=== PATIENT | male | born 1960 | race Caucasian/White ===

== ENCOUNTER → 2019-05-22 | Outpatient (CLI) | payer BC ==
--- NOTE | 2019-05-22 10:55 | NM ---
EXAMINATION TYPE: NM hepatobiliary wo EF DATE OF EXAM: 05/22/2019 COMPARISON: NONE HISTORY: Gallstones TECHNIQUE: After the intravenous administration of 4.99 mCi Tc 99m Mebrofenin hepatobiliary scintigra phy is performed. Immediate images post injection. FINDINGS: There is prompt homogenous uptake of radio pharmaceutical within the liver. Small bowel activity is d etected by 12 minutes. Gallbladder is not detected despite delayed imaging to 2.5 hours without signi ficant residual activity within the liver. IMPRESSION: Nonvisualization of the gallbladder could be due to chronic cholecystitis.
== END | disposition home or self-care (01) ==
LOC: RADNMMAIN 07:03
PROVIDERS: ATTEND Family Medicine
DX: K80.20 Calculus of gallbladder without cholecystitis without obstruction (principal)
CPT/HCPCS: 78226; A9537

== ENCOUNTER → 2019-06-16 | Outpatient (CLI) | payer BC ==
--- NOTE | 2019-06-16 14:33 | CT ---
EXAMINATION TYPE: CT abdomen w con DATE OF EXAM: 06/16/2019 COMPARISON: None HISTORY: Cholecystitis CT DLP: 1346.7 mGycm Automated exposure control for dose reduction was used. TECHNIQUE: Helical acquisition of images was performed from the lung bases through the top of iliac crest to include entire abdomen. CONTRAST: Performed with Oral Contrast and with IV Contrast, patient injected with 100 mL of Isovue 300. FINDINGS: Lung bases are clear. There is no pleural effusion. Heart size is normal. Stomach appears normal. Graciela er spleen pancreas appear normal. Bile ducts are not dilated. There is suggestion of very minimal flu id around the fundus of the gallbladder. Gallbladder is not dilated. There is no adrenal mass. Kidneys show satisfactory contrast opacification. There is no hydronephrosi s. There is 1 cm cortical cyst lateral left kidney. There is no retroperitoneal adenopathy. Ureters a re not dilated. There are a few sigmoid diverticula. There is no sign of diverticulitis. There are mu ltiple right side colonic diverticula also. There is no ascites. There is no free air. There is no si gn of a bowel obstruction. There is no sign of mesenteric edema. IMPRESSION: THERE IS SUBTLE EDEMA AROUND THE GALLBLADDER THAT COULD RELATE TO SOME DEGREE OF CHOLECYSTITIS. THE G ALLBLADDER HOWEVER IS NOT DILATED. There is colonic diverticulosis.
== END | disposition home or self-care (01) ==
LOC: RADCTMAIN 08:42
PROVIDERS: ATTEND Surgery
DX: K57.30 Diverticulosis of large intestine without perforation or abscess without bleeding (principal); R60.0 Localized edema
CPT/HCPCS: 74160; Q9967

== ENCOUNTER 2019-07-20 07:44 | Day surgery (SDC) | payer BC ==
[2019-07-18 13:39] VITALS: BMI 32.5
[~2019-07-20 07:44] MED LIST: DEXAMETHASONE SOD PHOSPHATE 10 MG/ML 1 ML VIAL IV ONE; HEPARIN SODIUM,PORCINE 5,000 UNIT/ML 1 ML VIAL SQ ONE; MIDAZOLAM 2 MG/2 ML VIAL IV PRN; ONDANSETRON 4 MG/2 ML VIAL IVP ONE; SCOPOLAMINE 1.5MG/72HR PATCH TRANSDERM ONE
[2019-07-20] MEDS ORDERED: LIDOCAINE 1% 20 ML VIAL (10MG/ML) FOR IV START INTRADERMA ONE (08:13)
[2019-07-20] MEDS: LACTATED RINGERS 1,000 ML IV SCH ×2 (08:13→11:04)
--- NOTE | 2019-07-20 08:39 | P.GSHP ---
History of Present Illness H&P Date: 07/20/19 Chief Complaint: Chronic cholecystitis 59-year-old male here today for cholecystectomy. Patient had a workup recently because of upper abdominal pain. HIDA scan showed nonvisualization of the gallbladder. Ultrasound showed a contracted gallbladder. CAT scan was ordered to confirm presence of the gallbladder which again was noted to be small and contracted with stones. Patient denies any change in the color of his skin urine or stool. Past Medical History Past Medical History: GERD/Reflux, Sleep Apnea/CPAP/BIPAP Additional Past Medical History / Comment(s): past hx of sleep apnea, History of Any Multi-Drug Resistant Organisms: None Reported Additional Past Surgical History / Comment(s): had sx for sleep apnea, sx for nasal polyps, "warthin wart" removed from right side of neck Past Anesthesia/Blood Transfusion Reactions: Previous Problems w/ Anesthesia Additional Past Anesthesia/Blood Transfusion Reaction / Comment(s): hard time waking up in past Smoking Status: Former smoker Medications and Allergies Home Medications Medication Instructions Recorded Confirmed Type ALPRAZolam [Xanax] 2 mg PO DAILY PRN 07/18/19 07/20/19 History Lansoprazole 1 tab PO DAILY 07/18/19 07/20/19 History Lisdexamfetamine Dimesylate 70 mg PO QAM PRN 07/18/19 07/20/19 History [Vyvanse] Allergies Allergy/AdvReac Type Severity Reaction Status Date / Time No Known Allergies Allergy Verified 07/18/19 13:32 Surgical - Exam Vital Signs Temp Pulse Resp BP Pulse Ox 97.7 F 95 16 136/90 97 07/20/19 07:59 07/20/19 07:59 07/20/19 07:59 07/20/19 07:59 07/20/19 07:59 Physical exam: General: Well-developed, well-nourished HEENT: Normocephalic, sclerae nonicteric Abdomen: Nontender, nondistended Extremities: No edema Neuro: Alert and oriented Assessment and Plan (1) Chronic cholecystitis Narrative/Plan: Will proceed with laparoscopic cholecystectomy, possible open cholecystectomy at this time. Risks of bleeding, infection, bile leak, bile duct injury, retained common bile duct stone, trocar injury, conversion to an open procedure, hernia, anesthesia related complications were reviewed. The patient understands and wishes to proceed. Current Visit: Yes Status: Acute Code(s): K81.1 - CHRONIC CHOLECYSTITIS SNOMED Code(s): 68895128
[2019-07-20] MEDS ORDERED: fentaNYL (PF) 50 MCG/ML 2 ML AMP ONE (08:58)
[2019-07-20] MEDS ORDERED: SUCCINYLCHOLINE CHLORIDE VIAL 200 MG/10 ML VIAL IV ONE (08:58)
[2019-07-20] MEDS ORDERED: ROCURONIUM BROMIDE 10 MG/ML 10 ML VIAL IV ONE (08:58)
[2019-07-20] MEDS ORDERED: PROPOFOL 10 MG/ML 20 ML VIAL IV ONE (08:58)
[2019-07-20] MEDS ORDERED: HYDROmorphone (PF) 1 MG/ML ONE (08:58)
[2019-07-20] MEDS ORDERED: LIDOCAINE 1% INJ 10MG/ML (20 ML MDV) ONE (08:58)
[2019-07-20] MEDS ORDERED: GLYCOPYRROLATE 0.2 MG/ML 2 ML VIAL ONE (08:58)
[2019-07-20] MEDS ORDERED: NEOSTIGMINE 1 MG/ML 10 ML VIAL ONE (08:58)
[2019-07-20] MEDS ORDERED: METOPROLOL TARTRATE 5 MG/5 ML VIAL IVP ONE (08:58)
[2019-07-20] MEDS ORDERED: ALBUTEROL INHALER 60 PUFF/8 GM INHALER INHALATION ONE (08:58)
[2019-07-20] MEDS ORDERED: PHENYLEPHRINE-0.9% NACL SYG 1 MG/10 ML SYRINGE ONE (08:58)
[2019-07-20] MEDS ORDERED: MIDAZOLAM 2 MG/2 ML VIAL ONE (08:58)
[2019-07-20] MEDS ORDERED: BUPIVACAINE (PF) 0.25% 30 ML VIAL SQ ONE (09:25)
--- NOTE | 2019-07-20 10:26 | P.OP ---
Date of Procedure: 07/20/19 Procedure(s) Performed: PREOPERATIVE DIAGNOSIS: Chronic cholecystitis POSTOPERATIVE DIAGNOSIS: Same PROCEDURE: Laparoscopic cholecystectomy SURGEON: Mak EBL: Minimal see anesthesia record ANESTHESIA: Gen. COMPLICATIONS: None OPERATIVE PROCEDURE: The patient was brought and placed on the operating room table in the supine position. The patient was placed under general anesthesia at that time. The abdomen was prepped and draped in the usual sterile fashion. A small vertical infraumbilical incision was made. The fascia was grasped with the Génesis forceps. The fascia was retracted anteriorly. The Veress needle was advanced into the peritoneal cavity. The saline drop test was normal. Insufflation took place up to 15 mmHg. A 5 mm optical trocar was advanced and the peritoneal cavity. 2 additional 5 mm trochars were placed in the right upper quadrant under direct visualization. A 12 mm trocar was advanced into the epigastric incision site. The gallbladder was contracted and partially calcified. The induration extended all the way down to the cystic duct. The gallbladder was retracted superiorly and laterally. The peritoneum overlying the infundibulum was bluntly dissected. The patient's cystic duct was visualized. The junction between the cystic duct common and hepatic duct was identified. The cystic duct was then divided after placement of 3 12 mm clips on the patient's side and one on the specimen side. The cystic artery was identified and clipped as well. A small vessel was seen along the gallbladder fossa and clipped as well. The gallbladder was then removed from the liver bed using electrocautery. The gallbladder was then removed from the epigastric trocar site with an Endo Catch bag. In order to remove the gallbladder the fascia was lengthened using electrocautery. The gallbladder fossa was irrigated with saline. There was no evidence of any bleeding or biliary drainage seen. The fascia at the 12 millimeter site was closed using a running 0 Vicryl stitch. The trochars were then removed. The skin at all 4 sites was closed using a 4-0 Monocryl stitch. Skin glue was utilized on the incision sites. At the end of this procedure the sponge and needle counts were correct. DISPOSITION: Stable to the recovery room
[2019-07-20 10:42] VITALS: TEMP 98.2
[2019-07-20] MEDS: HYDROmorphone 0.5 MG/0.5 ML SYRINGE IVP PRN ×2 (11:12→11:22)
[2019-07-20] MEDS ORDERED: HYDROcodone/APAP 5-325MG 1 EACH TAB PO ONE (11:50)
[2019-07-20 12:33] VITALS: BP 146/90; PULSE 72; RESP 16
== END 2019-07-20 12:50 | disposition home or self-care (01) ==
LOC: OR 07:44
PROVIDERS: ATTEND Surgery
DX: K80.10 Calculus of gallbladder with chronic cholecystitis without obstruction (principal); K21.9 Gastro-esophageal reflux disease without esophagitis; G47.33 Obstructive sleep apnea (adult) (pediatric); K08.89 Other specified disorders of teeth and supporting structures; F90.9 Attention-deficit hyperactivity disorder, unspecified type; F17.210 Nicotine dependence, cigarettes, uncomplicated; Z98.890 Other specified postprocedural states; Z87.09 Personal history of other diseases of the respiratory system; Z87.2 Personal history of diseases of the skin and subcutaneous tissue; Z91.89 Other specified personal risk factors, not elsewhere classified; Z79.899 Other long term (current) drug therapy
CPT/HCPCS: 88304; 47562; J2250; J0330; J1644; J1100; J2710; J0690; J2405; J2001; J3010; J1170 ×2; J2370; J2704

== ENCOUNTER → 2020-07-03 | Outpatient (CLI) | payer BC ==
--- NOTE | 2020-07-03 11:14 | MR ---
EXAMINATION TYPE: MR shoulder LT wo con DATE OF EXAM: 07/03/2020 COMPARISON: X-ray 06/17/2020 HISTORY: Left shoulder pain TECHNIQUE: Multiplanar, multisequence imaging of the left shoulder is performed without contrast. FINDINGS: There is a small joint effusion. Glenohumeral ligaments appear intact. There does appear to be mild thickening of the inferior glenohumeral ligament. There is increased fluid signal surrounding the biceps tendon. Thickening and increased signal along the intracapsular portion of the tendon finding compatible with tendinosis. Exam is severely limited due to motion artifact. AC joint arthropathy with impingement of the suprasp inatus tendon and muscle. At the insertion there is a intrasubstance tear measuring a length of 4 mm in diameter of 3 mm of the supraspinatus tendon. Additionally from the musculotendinous junction extending a length of 2 cm the re is increased intrasubstance signal and thickening of the tendon compatible severe tendinosis and p artial undersurface tear. No retraction. Infraspinatus tendon demonstrates no through thickness tear. Intrasubstance signal seen along the dis meri 2 cm of the tendon compatible with tendinosis. Assessment of the labrum is limited due to motion. Findings are suspicious for a SLAP tear which exte nds forward and inferiorly into the inferior anterior labral tear IMPRESSION: 1. Severe tendinosis involving supraspinatus tendon extending from the musculotendinous junction to t he insertion. Partial undersurface tear distally near the insertion with no evidence of complete thro ugh thickness tear or retraction. 2. Moderate tendinosis distal 2 cm of the infraspinatus tendon with a partial tear distally near the insertion. No complete through thickness tear. 3. Impingement secondary to AC joint arthropathy. 4. Bicipital tendinosis. Bicipital tendon appears to be subluxed from the bicipital groove. Intrasubs tance tear of the biceps tendon within the rotator interval extending to the biceps anchor. 5. There is a SLAP tear which extends forward and inferiorly into the anterior inferior labrum 5. Thickening of the inferior glenohumeral ligament with small joint effusion associated with a synov itis. Correlate clinically.
== END | disposition home or self-care (01) ==
LOC: RADMRIMAIN 09:03
PROVIDERS: ATTEND Orthopaedic Surgery
DX: M75.112 Incomplete rotator cuff tear or rupture of left shoulder, not specified as traumatic (principal); M65.9 Synovitis and tenosynovitis, unspecified; M25.412 Effusion, left shoulder

== ENCOUNTER → 2020-07-28 | Outpatient (CLI) | payer BC ==
[2020-07-28 09:12] LABS: Basophils # (A) 0.1 k/uL (0-0.2); Basophils % (A) 1 %; Eosinophils # (A) 0.2 k/uL (0-0.7); Eosinophils % (A) 2 %; HCT 52.1 % (39.0-53.0); HGB 16.8 gm/dL (13.0-17.5); Lymphocytes # (A) 2.7 k/uL (1.0-4.8); Lymphocytes % (A) 23 %; MCH 28.5 pg (25.0-35.0); MCHC 32.3 g/dL (31.0-37.0); MCV 88.3 fL (80.0-100.0); Mean Platelet Volume 9.9; Monocytes # (A) 0.6 k/uL (0-1.0); Monocytes % (A) 5 %; Neutrophils # (A) 8.1 k/uL (1.3-7.7); Neutrophils % (A) 68 %; Platelet Count 208 k/uL (150-450); RDW 13.8 % (11.5-15.5); WBC 11.9 k/uL (3.8-10.6)
[2020-07-28 09:29] LABS: Potassium 4.5 mmol/L (3.5-5.1)
== END | disposition home or self-care (01) ==
LOC: LABWHC1 08:03
PROVIDERS: ATTEND Orthopaedic Surgery
DX: Z01.818 Encounter for other preprocedural examination (principal); M75.41 Impingement syndrome of right shoulder
CPT/HCPCS: 36415; 80051; 85025; 93005

== ENCOUNTER → 2020-08-26 | Outpatient (CLI) | payer BC ==
--- NOTE | 2020-08-26 12:23 | MR ---
EXAMINATION TYPE: MR shoulder RT wo con DATE OF EXAM: 08/26/2020 COMPARISON: None HISTORY: Rt shoulder pain Technique: Multiplanar, multiecho imaging on a 3.0 Ivy magnet is performed through the shoulder. Ex am is limited due to motion artifact throughout the Findings: Long head of the biceps tendon is within the bicipital groove. Fluid surrounds the long hea d biceps tendon. Correlate for moderate tendinosis. No significant joint effusion is evident. Glenoid labrum as visualized on this noncontrast study simi ears intact. Rotator cuff tendons are evaluated. There is fluid within the subacromial subdeltoid bursa adjacent to the supraspinatus tendon. Perforation is not identified. Correlate for mild to moderate tendinosis supraspinatus and no tendon or muscle retraction is evident. Muscle signal. The acromioclavicular j unction is hypertrophied which can contribute to impingement syndrome. Some inflammatory change junct ion T2-weighted sequences. IMPRESSIONS: 1. Findings suggestive of moderate tendinosis of the supraspinatus tendon and long head biceps tendon .
== END | disposition home or self-care (01) ==
LOC: RADMRIMAIN 11:05
PROVIDERS: ATTEND Orthopaedic Surgery
DX: M25.511 Pain in right shoulder (principal)

== ENCOUNTER 2020-08-28 07:29 | Day surgery (SDC) | payer BC ==
[2020-08-26 14:50] VITALS: BMI 32.5
--- NOTE | 2020-08-27 15:21 | HP ---
HISTORY AND PHYSICAL DATE OF SURGERY: 08/28/2020 Renato Bonner is a 60-year-old gentleman seen with progressive left shoulder pain. Options were discussed for treatment. He elected to proceed with arthroscopy. Consent was obtained. PAST MEDICAL HISTORY: Hyperlipidemia. PAST SURGICAL HISTORY: Cholecystectomy. DAILY MEDICATIONS: Prevacid, cholesterol medication. ALLERGIES: NONE. SOCIAL HISTORY: He denies current tobacco use. PHYSICAL EVALUATION OF THE LEFT SHOULDER: Flexion 110, abduction 110. External rotation is 50 with pain and weakness. Tenderness along the anterolateral acromion and rotator cuff insertion site. Impingement is positive at 90. Drop-arm sign is positive. Distal neurovascular exam is intact. IMAGING: Left shoulder radiographs revealed a type 2 acromion, acromioclavicular joint osteoarthritis and cystic changes of the tuberosity. An MRI of the left shoulder revealed partial rotator cuff tendon tear, SLAP tear, impingement, acromioclavicular joint osteoarthritis. IMPRESSION: 1. Left shoulder impingement with rotator cuff tear. 2. Left shoulder SLAP tear. 3. Left shoulder acromioclavicular joint osteoarthritis. PLAN: Left shoulder arthroscopy with decompression, arthroscopic rotator cuff repair, arthroscopic labral repair versus debridement, Kasia procedure. MMODL / IJN: [id number] /
[~2020-08-28 07:29] MED LIST changes: -DEXAMETHASONE SOD PHOSPHATE 10 MG/ML 1 ML VIAL IV ONE; +DEXAMETHASONE SOD PHOSPHATE 4 MG/ML 1 ML VIAL IV ONE; -HEPARIN SODIUM,PORCINE 5,000 UNIT/ML 1 ML VIAL SQ ONE; +HYDROmorphone 0.5 MG/0.5 ML SYRINGE IVP PRN; +LACTATED RINGERS 1,000 ML IV SCH; +LIDOCAINE 1% (10MG/ML) FOR IV START INTRADERMA PRN; -SCOPOLAMINE 1.5MG/72HR PATCH TRANSDERM ONE
[2020-08-28] MEDS ORDERED: MIDAZOLAM 2 MG/2 ML VIAL IV ONE (08:22)
--- NOTE | 2020-08-28 09:30 | P.ANPRN ---
Procedure Note - Anesthesia - Nerve Block Performed Left Interscalene Single Time Out Performed: Yes Date of Procedure: 08/28/20 Procedure Start Time: : Procedure Stop Time: Location of Patient: PreOp Indication: Acute Post-Operative Pain, Requested by Surgeon Sedation Type: Sedate with meaningful contact maintained Preparation: Sterile Prep Position: Supine Needle Types: Pajunk Needle Gauge: 21 Ultrasound used to visualize needle placement: Yes Ultrasound used to observe medication spread: Yes Blood Aspirated: No Pain Paresthesia on Injection Noted: No Resistance on Injection: Normal Image Stored and Saved: Yes Events: Uneventful and Well Tolerated (ropi .5% 20cc plus dexamethasone 4mg)
[2020-08-28] MEDS ORDERED: ePHEDrine SULFATE/0.9% NACL/PF 50 MG/5 ML SYRINGE IV ONE (09:38)
[2020-08-28] MEDS ORDERED: MIDAZOLAM 2 MG/2 ML VIAL ONE (09:38)
[2020-08-28] MEDS ORDERED: PHENYLEPHRINE 10 MG/ML VIAL ONE (09:38)
[2020-08-28] MEDS ORDERED: ALBUTEROL HFA INHALER INHALATION ONE (09:38)
[2020-08-28] MEDS ORDERED: PROPOFOL 10 MG/ML 20 ML VIAL IV ONE (09:38)
[2020-08-28] MEDS ORDERED: DEXAMETHASONE SOD PHOSPHATE 4 MG/ML 1 ML VIAL ONE (09:38)
[2020-08-28] MEDS ORDERED: LIDOCAINE 1% INJ 10MG/ML (20 ML MDV) ONE (09:38)
[2020-08-28] MEDS ORDERED: ROPIVACAINE 5 MG/ML 30 ML VIAL ONE (09:38)
[2020-08-28] MEDS ORDERED: fentaNYL (PF) 50 MCG/ML 2 ML AMP ONE (09:38)
[2020-08-28] MEDS ORDERED: SUCCINYLCHOLINE CHLORIDE 100 MG/5 ML SYR IV ONE (09:38)
[2020-08-28] MEDS ORDERED: LACTATED RINGERS 1,000 ML IV ONE (10:19)
--- NOTE | 2020-08-28 11:18 | P.OP ---
Date of Procedure: 08/28/20 Preoperative Diagnosis: Left shoulder impingement Postoperative Diagnosis: 1. Left shoulder labral tear 2. Left shoulder impingement 3. Left shoulder acromioclavicular joint osteoarthritis 4. Left shoulder partial long head biceps tendon tear Procedure(s) Performed: 1. Left shoulder arthroscopic labral repair 2. Left shoulder arthroscopic subacromial decompression 3. Left shoulder arthroscopic Kasia procedure 4. Left shoulder arthroscopic biceps tenotomy Implants: 2Arthrex push lock anchors Anesthesia: GETA, regional (Interscalene block) Surgeon: Chad Snow [employer]: Renny Woodward Estimated Blood Loss (ml): 10 Pathology: none sent Condition: stable Disposition: PACU Indications for Procedure: 60-year-old gentleman seen with progressive left shoulder pain. After treatment options were discussed, he elected to proceed with arthroscopy. Operative Findings: See description of procedure Description of Procedure: Patient underwent an interscalene block by department of anesthesia. The patient was then taken to the operative suite. The patient underwent a general anesthetic by the department of anesthesia. The patient was placed into a lateral position and secured. There was appropriate padding of the bony prominence. Left shoulder was then prepped and draped in normal sterile orthopedic fashion. We placed the extremity in 10 pounds of longitudinal traction. A posterior incision was now made for a posterior working portal site. The trocar and cannula were inserted into the glenohumeral joint. Arthroscopy was initiated. Spinal needle was now inserted anteriorly, to ascertain the anterior working portal site. An incision was now made in that area, a trocar was inserted followed by a probe. There was significant partial tearing long head biceps tendon. There was an anterior labral tear present. The superior labrum was stable. There was some grade 2/3 chondromalacia changes along the anterior glenoid consistent with long-standing labral tear. The posterior and inferior labrum were intact. I now introduced a cannula through the anterior portal site. I now abraded the anterior labral area getting down to some petechial bone. I now passed 2 sutures through good bites of labral tissue. With the assistance of Michael CAMACHO had drilled 2 holes into the anterior labrum and then repaired the labral tear with 2 Arthrex push lock anchors. Residual suture limbs were clipped. The repair was probed and found to be stable. Instruments now removed from glenohumeral joint. Utilizing the posterior working portal site, the trocar and cannula were inserted into the subacromial space. Arthroscopy initiated. I made an incision 2 fingerbreadths lateral to the acromion. I introduced my trocar followed by my ArthroCare ablator. I now began ablating thick subacromial bursal tissue, which exposed the undersurface of the anterior acromion. There was diminished subacromial space. There was a very prominent anterior acromion. A motorized bur was introduced and a subacromial decompression was performed. I also excised some osteophytes off the inferior aspect of the distal clavicle. The AC joint was visualized and noted to be fairly arthritic. The motorized bur was introduced in the anterior portal site and a Kasia procedure was performed without difficulty, decompressing the AC joint nicely. I turned my attention to the rotator cuff. There was superficial fraying of the distal supraspinatus. Motorize shaver was utilized to clean that up. There was probed and there was no evidence for any tear. Instruments now removed from the portal sites. All portal sites were approximated with nylon suture. Sterile dressings were applied followed by a shoulder immobilizer. Renny CAMACHO assisted in this complex case. The patient was awakened, transferred to a bed, and taken to recovery in stable condition.
[2020-08-28 11:21] VITALS: TEMP 97.1
[2020-08-28 12:09] VITALS: RESP 18
[2020-08-28 12:36] VITALS: BP 129/80; PULSE 82
== END 2020-08-28 12:55 | disposition home or self-care (01) ==
LOC: OR 07:29
PROVIDERS: ATTEND Orthopaedic Surgery
DX: S43.432A Superior glenoid labrum lesion of left shoulder, initial encounter (principal); S46.112A Strain of muscle, fascia and tendon of long head of biceps, left arm, initial encounter; M19.012 Primary osteoarthritis, left shoulder; M75.102 Unspecified rotator cuff tear or rupture of left shoulder, not specified as traumatic; M75.42 Impingement syndrome of left shoulder; M94.212 Chondromalacia, left shoulder; M25.712 Osteophyte, left shoulder; G47.33 Obstructive sleep apnea (adult) (pediatric); F32.9 Major depressive disorder, single episode, unspecified; K21.9 Gastro-esophageal reflux disease without esophagitis; E78.5 Hyperlipidemia, unspecified; Z79.899 Other long term (current) drug therapy; Z90.49 Acquired absence of other specified parts of digestive tract
CPT/HCPCS: 64415; 76942; 29824; 29826; 29807; C1713 ×2; J2250; J1100; J2370; J0690; J2405; J2001; J3010; J2795; J0330; J2704

== ENCOUNTER 2021-05-28 09:19 | Day surgery (SDC) | payer BC ==
[2021-05-25 14:31] VITALS: BMI 34.0
[~2021-05-28 09:19] MED LIST changes: +DEXAMETHASONE SOD PHOSPHATE 4 MG/ML 1 ML VIAL IV PRN; +FAMOTIDINE 20 MG/2 ML VIAL IV PRN; -LIDOCAINE 1% (10MG/ML) FOR IV START INTRADERMA PRN; -MIDAZOLAM 2 MG/2 ML VIAL IV PRN; +ONDANSETRON 4 MG/2 ML VIAL IVP PRN; +OXYMETAZOLINE 0.05% NASL SPRAY 1 SPRAY BOTTLE EA NOSTRIL PRN
[2021-05-28] MEDS ORDERED: NEOSTIGMINE 1 MG/ML 10 ML VIAL ONE (11:55)
[2021-05-28] MEDS ORDERED: PHENYLEPHRINE-0.9% NACL SYG 1,000 MCG/10 ML SYRINGE ONE (11:55)
[2021-05-28] MEDS ORDERED: ROCURONIUM 10 MG/ML (5 ML VIAL) IV ONE (11:55)
[2021-05-28] MEDS ORDERED: LIDOCAINE 1% INJ 10MG/ML (20 ML MDV) ONE (11:55)
[2021-05-28] MEDS ORDERED: fentaNYL (PF) 50 MCG/ML 2 ML AMP ONE (11:55)
[2021-05-28] MEDS ORDERED: PROPOFOL 10 MG/ML 20 ML VIAL IV ONE (11:55)
[2021-05-28] MEDS ORDERED: SUCCINYLCHOLINE CHLORIDE 100 MG/5 ML SYR IV ONE (11:55)
[2021-05-28] MEDS ORDERED: GLYCOPYRROLATE 0.2 MG/ML 2 ML VIAL ONE (11:55)
[2021-05-28] MEDS ORDERED: MIDAZOLAM 2 MG/2 ML VIAL ONE (11:55)
[2021-05-28] MEDS ORDERED: LIDOCAINE 2%-EPI 1:100,000 20 ML VIAL SQ ONE ×2 (12:28)
[2021-05-28] MEDS ORDERED: BUPIVACAINE (PF) 0.5% 30 ML VIAL SQ ONE ×2 (12:28)
[2021-05-28] MEDS ORDERED: OXYMETAZOLINE 0.05% NASL SPRAY 1 SPRAY BOTTLE MISCELLANE ONE (12:59)
[2021-05-28] MEDS ORDERED: LACTATED RINGERS 1,000 ML IV ONE (13:17)
--- NOTE | 2021-05-28 13:39 | P.OP ---
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 Examination revealed a nasopharyngeal mass causing left obstruction to the eustachian tube. Tube placement and removal of the mass was recommended. It was also found to have a left auricular mass and surgical removal was recommended. All risks, benefits, and alternative therapies were discussed. Consent was obtained and all questions were answered. Operative Findings: Patient had a large cystic mass the nasopharynx and another large mass of the inferior portion of the left ear. There is a very thick viscous middle ear effusion on the left ear with a mucous plug. An ultraseal tube was placed on the left side. Description of Procedure: This patient was taken to the operative room and placed in the supine position. A general inhalation anesthetic was administered to the patient by mask and subsequently intubated with a cuffed endotracheal tube by the department of anesthesia with a functioning IV line in place. The patient was monitored throughout the entire case by the department of anesthesia. The left ear was sterilely prepped and draped in usual fashion and a 2.6 x 2 cm mass inferiorly was identified. This area was anesthetized and then this mass was excised with use of a 15 blade delicate plastic scissors and a Brown-Adson forceps. Hemostasis was obtained with use of suction electrocoagulation. We then elevated inferiorly and superiorly based flaps for closure with removal of burrows triangles. We rotated the flaps into position and close the deep subcutaneous tissue with a 4-0 Monocryl. We then closed the deep dermal layer with 4-0 Monocryl and then 50 rapid Vicryl in a running nonlocking fashion excellent approximation was obtained. Attention was then paid to the left ear with use of a 300 mm Zeiss microscope. The left tympanic membrane was severely retracted with fluid present. A tympanostomy incision was made inferiorly and a large amount of thick viscous mu coid purulence was suctioned. An ultraseal tube was placed and ofloxacin drops were then instilled. After the left tube was placed utilizing an ultraseal tube attention was then paid to the nasopharynx. We inserted a 0 Nixon shanique scope intranasally into the nasopharynx and found a very large cystic mass causing near complete occlusion of the nasopharynx blocking the left eustachian tube. This was removed under direct visualization with use of a 0 Nixon shanique scope and a straight Blakesley and up-biting Blakesley. All cystic mass elements were removed from the nasopharynx and the patient tolerated this well. Hemostasis was obtained with use of Afrin nasal spray. Excellent results were obtained and the patient was taken to postanesthesia recovery in excellent condition. Patient is to follow up with me in the office in 1 week.
[2021-05-28 13:54] VITALS: TEMP 97.5
[2021-05-28 14:07] VITALS: RESP 20
[2021-05-28 15:00] VITALS: BP 144/78; PULSE 70
== END 2021-05-28 15:01 | disposition home or self-care (01) ==
LOC: OR 09:19
PROVIDERS: ATTEND Otolaryngology
DX: H65.492 Other chronic nonsuppurative otitis media, left ear (principal); L72.3 Sebaceous cyst; G47.33 Obstructive sleep apnea (adult) (pediatric); Z99.89 Dependence on other enabling machines and devices; M19.90 Unspecified osteoarthritis, unspecified site; F41.8 Other specified anxiety disorders; K21.9 Gastro-esophageal reflux disease without esophagitis; F90.9 Attention-deficit hyperactivity disorder, unspecified type; Z87.891 Personal history of nicotine dependence
CPT/HCPCS: 21012; 88304; 88305; 88342; 88341; J2250; J1100; J2710; J2405; J0690; J2001; J3010; J2370; J0330; J2704

== ENCOUNTER → 2021-06-22 | Outpatient (CLI) | payer BC ==
[2021-06-22 08:37] LABS: Basophils # (A) 0.1 k/uL (0-0.2); Basophils % (A) 1 %; Eosinophils # (A) 0.3 k/uL (0-0.7); Eosinophils % (A) 3 %; HCT 48.3 % (39.0-53.0); HGB 16.5 gm/dL (13.0-17.5); Lymphocytes # (A) 2.8 k/uL (1.0-4.8); Lymphocytes % (A) 27 %; MCH 30.1 pg (25.0-35.0); MCHC 34.2 g/dL (31.0-37.0); MCV 88.1 fL (80.0-100.0); Mean Platelet Volume 9.3; Monocytes # (A) 0.6 k/uL (0-1.0); Monocytes % (A) 6 %; Neutrophils # (A) 6.3 k/uL (1.3-7.7); Neutrophils % (A) 62 %; Platelet Count 225 k/uL (150-450); RBC 5.49 m/uL (4.30-5.90); WBC 10.2 k/uL (3.8-10.6)
[2021-06-22 09:19] LABS: Potassium 4.6 mmol/L (3.5-5.1)
== END | disposition home or self-care (01) ==
LOC: PAT 07:42
PROVIDERS: ATTEND Orthopaedic Surgery
DX: Z01.812 Encounter for preprocedural laboratory examination (principal); M75.41 Impingement syndrome of right shoulder
CPT/HCPCS: 80051; 85025

== ENCOUNTER 2021-06-24 05:35 | Day surgery (SDC) | payer BC ==
[2021-06-23 09:02] VITALS: BMI 31.0
--- NOTE | 2021-06-23 18:22 | HP ---
HISTORY AND PHYSICAL REASON FOR ADMISSION: Surgery scheduled for 06/24/2021 HISTORY OF PRESENT ILLNESS: Efren Bonner is a 61-year-old patient seen with progressive right shoulder pain. After treatment options were discussed, the patient elected to proceed with right shoulder arthroscopy. Consent was obtained. PAST MEDICAL HISTORY: Noncontributory. PAST SURGICAL HISTORY: Cholecystectomy. MEDICATIONS: Prevacid. ALLERGIES: None. SOCIAL HISTORY: Denies tobacco use. PHYSICAL EVALUATION OF THE RIGHT SHOULDER: Flexion is 150 degrees, abduction is 130 degrees, external rotation 35 degrees with pain and weakness. Tenderness along the anterior lateral acromion and rotator cuff insertion site. Impingement positive 90 degrees. Cross-body adduction sign is positive. Drop-arm sign is positive. Distal neurovascular exam is intact. RADIOGRAPHS: Radiographs of the right shoulder revealed a type 2 anterior acromion, evidence for acromioclavicular joint osteoarthritis. Right shoulder MRI revealed tendinosis, impingement and acromioclavicular joint osteoarthritis. IMPRESSION: 1. Right shoulder impingement with possible rotator cuff tear. 2. Right shoulder acromioclavicular joint osteoarthritis. 3. Gastroesophageal reflux disease. PLAN: Right shoulder arthroscopy with subacromial decompression, possible rotator cuff repair, Kasia procedure and debridement. Surgery scheduled 06/24/2021. MMODL / IJN: [id number] /
[2021-06-24] MEDS ORDERED: LACTATED RINGERS 1,000 ML IV SCH (05:49)
[2021-06-24] MEDS ORDERED: LIDOCAINE 1% (10MG/ML) FOR IV START INTRADERMA PRN (05:49)
[2021-06-24] MEDS ORDERED: MIDAZOLAM 2 MG/2 ML VIAL IV PRN (05:49)
[2021-06-24] MEDS ORDERED: ONDANSETRON 4 MG/2 ML VIAL IVP ONE (05:49)
[2021-06-24] MEDS ORDERED: DEXAMETHASONE SOD PHOSPHATE 4 MG/ML 1 ML VIAL IV ONE (05:49)
[2021-06-24] MEDS ORDERED: MIDAZOLAM 2 MG/2 ML VIAL IV ONE (06:41)
[2021-06-24] MEDS ORDERED: GLYCOPYRROLATE 0.2 MG/ML 2 ML VIAL ONE (06:53)
[2021-06-24] MEDS ORDERED: ROPIVACAINE 5 MG/ML 30 ML VIAL ONE (06:53)
[2021-06-24] MEDS ORDERED: fentaNYL (PF) 50 MCG/ML 2 ML AMP ONE (06:53)
[2021-06-24] MEDS ORDERED: PROPOFOL 10 MG/ML 20 ML VIAL IV ONE (06:53)
[2021-06-24] MEDS ORDERED: NEOSTIGMINE 1 MG/ML 10 ML VIAL ONE (06:53)
[2021-06-24] MEDS ORDERED: SUCCINYLCHOLINE CHLORIDE 100 MG/5 ML SYR IV ONE (06:53)
[2021-06-24] MEDS ORDERED: LIDOCAINE 1% INJ 10MG/ML (20 ML MDV) ONE (06:53)
[2021-06-24] MEDS ORDERED: ROCURONIUM 10 MG/ML (5 ML VIAL) IV ONE (06:53)
[2021-06-24] MEDS ORDERED: HYDROmorphone 0.5 MG/0.5 ML SYRINGE IVP PRN (07:00)
--- NOTE | 2021-06-24 08:44 | P.OP ---
Date of Procedure: 06/24/21 Preoperative Diagnosis: Right shoulder impingement Postoperative Diagnosis: 1. Right shoulder rotator cuff tear 2. Right shoulder impingement 3. Right shoulder acromioclavicular joint osteoarthritis 4. Right shoulder partial long head biceps tendon tear Procedure(s) Performed: 1. Right shoulder arthroscopic rotator cuff repair 2. Right shoulder arthroscopic subacromial decompression 3. Right shoulder arthroscopic Kasia procedure 4. Right shoulder arthroscopic biceps tenotomy Implants: 15.5 Arthrex swivel lock anchor Anesthesia: GETA, regional (Interscalene block) Surgeon: Chad Snow Beef Skinner #1: Winston Fields Estimated Blood Loss (ml): 11 Pathology: none sent Condition: stable Disposition: PACU Indications for Procedure: 61-year-old patient seen with progressive right shoulder pain. After having tr eatment options discussed, the patient elected to proceed with arthroscopy. Operative Findings: see description of procedure Description of Procedure: Patient underwent an interscalene block by department of anesthesia. The patient was then taken to the operative suite. The patient underwent a general anesthetic by the department of anesthesia. The patient was placed into a lateral position and secured. There was appropriate padding of the bony prominence. Right shoulder was then prepped and draped in normal sterile orthopedic fashion. We placed the extremity in 10 pounds of longitudinal traction. A posterior incision was now made for a posterior working portal site. The trocar and cannula were inserted into the glenohumeral joint. Arthroscopy was initiated. Spinal needle was now inserted anteriorly, to ascertain the anterior working portal site. An incision was now made in that area, a trocar was inserted followed by a probe. There was significant partial tearing long head biceps tendon. There was no significant chondromalacia present. The labrum was probed and it was found to be stable. I performed an arthroscopic biceps tenotomy. I again probed the labrum and it was found to be stable. Instruments now removed from glenohumeral joint. Utilizing the posterior working portal site, the trocar and cannula were in serted into the subacromial space. Arthroscopy initiated. I made an incision 2 fingerbreadths lateral to the acromion. I introduced my trocar followed by my ArthroCare ablator. I now began ablating thick subacromial bursal tissue, which exposed the undersurface of the anterior acromion. There was diminished subacromial space. There was a very prominent anterior acromion. A motorized bur was introduced and a subacromial decompression was performed. I also excised some osteophytes off the inferior aspect of the distal clavicle. The AC joint was visualized and noted to be fairly arthritic. The motorized bur was introduced in the anterior portal site and a Kasia procedure was performed without difficulty, decompressing the AC joint nicely. I turned my attention to the rotator cuff. There was significant partial tearing along the distal supraspinatus area. Upon probing the area and noted a full-thickness perforation. I now debrided the margins getting down to stable tendon tissue. The defect measured approximately 11.5 cm and was freely mobile over the footprint. I abraded the footprint with a motorized bur. With the assistance of Winston CAMACHO I passed 2 everted mattress sutures through good bites of rotator cuff tendon. I now punched a hole in the footprint area for insertion of an anchor. I now passed all 4 limbs of suture through the eyelet of a 5.5 Arthrex swivel lock anchor. I now placed the eyelet into the pre-punched hole. I held it in position while Winston CAMACHO tensioned all sutures and deployed the anchor with good fixation noted. All residual suture limbs were now clipped. We had good compression of the tendon along the entire footprint. Instruments now removed from the portal sites. All portal sites were approximated with nylon suture. Sterile dressings were applied followed by a shoulder sling. Winston CAMACHO assisted in this case. The patient was awakened, transferred to a bed, and taken to recovery in stable condition.
[2021-06-24 08:52] VITALS: TEMP 97.9
[2021-06-24] MEDS ORDERED: HYDROcodone/APAP 7.5-325MG 1 EACH TAB PO ONE (09:56)
[2021-06-24] MEDS ORDERED: HYDROcodone/APAP 7.5-325MG 1 EACH TAB ONE (09:58)
[2021-06-24 10:38] VITALS: BP 150/79; PULSE 67; RESP 20
--- NOTE | 2021-06-24 13:01 | P.ANPRN ---
Procedure Note - Anesthesia - Nerve Block Performed Right Interscalene Time Out Performed: Yes (06:40) Date of Procedure: 06/24/21 Procedure Start Time: :40 Procedure Stop Time: 06:54 Location of Patient: PreOp Indication: Acute Post-Operative Pain, Requested by Surgeon (Dr Snow) Sedation Type: Sedate with meaningful contact maintained Preparation: Sterile Prep Position: Supine Catheter: None Needle Types: Pajunk Needle Gauge: Other (see comment) (22g) Ultrasound used to visualize needle placement: Yes Ultrasound used to observe medication spread: Yes Injectate: 0.5% Ropivacaine (see comment for volume) (20cc) Blood Aspirated: No Pain Paresthesia on Injection Noted: No Resistance on Injection: Normal Image Stored and Saved: Yes Events: Uneventful and Well Tolerated
== END 2021-06-24 10:39 | disposition home or self-care (01) ==
LOC: OR 05:35
PROVIDERS: ATTEND Orthopaedic Surgery
DX: M75.101 Unspecified rotator cuff tear or rupture of right shoulder, not specified as traumatic (principal); M25.811 Other specified joint disorders, right shoulder; M19.011 Primary osteoarthritis, right shoulder; S46.111A Strain of muscle, fascia and tendon of long head of biceps, right arm, initial encounter; X58.XXXA Exposure to other specified factors, initial encounter; Z90.49 Acquired absence of other specified parts of digestive tract; Z79.899 Other long term (current) drug therapy; K21.9 Gastro-esophageal reflux disease without esophagitis; Z98.890 Other specified postprocedural states
CPT/HCPCS: 29826; 29827; 29824; 64415; 76942; C1713; J1100; J2710; J0690; J2405; J2001; J3010; J2795; J0330; J2704

== ENCOUNTER → 2024-04-24 | Outpatient (CLI) | payer BC | END | disposition home or self-care (01) | LOC: LABPRL 15:20 | PROVIDERS: ATTEND Family Medicine | DX: Z00.00 Encounter for general adult medical examination without abnormal findings (principal); Z12.5 Encounter for screening for malignant neoplasm of prostate; I10 Essential (primary) hypertension; E78.5 Hyperlipidemia, unspecified | CPT/HCPCS: 80061; 80053; 85025; 83036; G0103 ==

== ENCOUNTER 2025-03-27 15:41 | Inpatient (IN) | payer MEDICARE ==
[2025-03-27] MEDS: NITROGLYCERIN SL TABS 0.4 MG TAB SUBLINGUAL STA (16:40)
[2025-03-27] MEDS: ASPIRIN 81 MG PO STA (16:40)
[2025-03-27] MEDS: MORPHINE SULFATE 4 MG/ML SYRINGE IVP STA (16:40)
[2025-03-27 16:50] LABS: Basophils # (A) 0.08 10*3/uL (0.00-0.10); Basophils % (A) 0.8 %; Eosinophils # (A) 0.00 10*3/uL (0.04-0.35); Eosinophils % (A) 0.0 %; HCT 50.6 % (39.6-50.0); HGB 17.3 g/dL (13.0-17.0); Lymphocytes # (A) 2.93 10*3/uL (0.90-5.00); Lymphocytes % (A) 28.0 %; MCH 29.4 pg (27.0-32.0); MCHC 34.2 g/dL (32.0-37.0); MCV 86.1 fL (80.0-97.0); Monocytes # (A) 0.61 10*3/uL (0.20-1.00); Monocytes % (A) 5.8 %; Neutrophils # (A) 6.82 10*3/uL (1.80-7.70); Neutrophils % (A) 65.0 %; Platelet Count 203 10*3/uL (140-440); RBC 5.88 10*6/uL (4.40-5.60); RDW 14.3 % (11.5-14.5); WBC 10.48 10*3/uL (4.50-10.00)
[2025-03-27 16:59] LABS: INR 1.0 (<1.2); Partial Thromboplastin Time 24.0 sec (22.0-30.0); Prothrombin Time 11.5 sec (10.0-12.5)
[2025-03-27 17:00] LABS: ALT 24 U/L (4-49); AST 34 U/L (17-59); African American GFR (CKD) >90 (>60 ml/min/1.73 sqM); Albumin 4.2 g/dL (3.5-5.0); Alkaline Phosphatase 123 U/L (38-126); Anion Gap 11 mmol/L; Blood Urea Nitrogen 17 mg/dL (9-20); Calcium 9.8 mg/dL (8.4-10.2); Carbon Dioxide 22 mmol/L (22-30); Chloride 103 mmol/L (98-107); Glucose 110 mg/dL (74-99); Lipase 71 U/L (23-300); Magnesium 1.9 mg/dL (1.6-2.3); Non-African American GFR(CKD) >90 (>60 ml/min/1.73 sqM); Potassium 4.9 mmol/L (3.5-5.1); Sodium 136 mmol/L (137-145); Total Protein 7.6 g/dL (6.3-8.2)
[2025-03-27 17:09] LABS: NT-Pro-B-Type Natriuretic Pept 724 pg/mL
--- NOTE | 2025-03-27 17:31 | ED ---
Chest Pain HPI - General Chief Complaint: Chest Pain Stated Complaint: chest pain Time Seen by Provider: 03/27/25 15:45 Source: patient Mode of arrival: wheelchair Limitations: no limitations - History of Present Illness Initial Comments: 64-year-old male with past medical history of hyperlipidemia who presents emergency department with chest pain. States it has been going on since Tuesday. It has been intermittent in nature. Denies any provocative factors. States when he sits up straight this does seem to help his symptoms. He denies history of coronary disease. Does admit to a diagnosis of angina approximately 20 years ago but states he has never had a heart cath. He does admit to stress testing through Dr. Redding however this was a long time ago. Patient took Aleve for his pain without any improvement in his symptoms. He also reports he has been trying to treat his symptoms with omeprazole as he was concerned it may have been his heartburn acting up on him. He does not take an aspirin. He does take a high dose statin daily. He denies fevers, chills or cough. Chest pain is currently 6 out of 10. He describes it as a pressure sensation that goes from his chest to his left arm. No shortness of breath. No other alleviating, precipitating modifying factors - Related Data Home Medications Medication Instructions Recorded Confirmed Lisdexamfetamine Dimesylate 70 mg PO DAILY PRN 07/18/19 03/27/25 [Vyvanse] ALPRAZolam [Xanax] 0.25 mg PO HS 03/27/25 03/27/25 Omeprazole 20 mg PO BID 03/27/25 03/27/25 Allergies Allergy/AdvReac Type Severity Reaction Status Date / Time No Known Allergies Allergy Verified 03/27/25 18:18 Review of Systems ROS Statement: Those systems with pertinent positive or pertinent negative responses have been documented in the HPI. ROS Other: All systems not noted in ROS Statement are negative. Past Medical History Past Medical History: GERD/Reflux, Hyperlipidemia, Osteoarthritis (OA), Sleep Apnea/CPAP/BIPAP Additional Past Medical History / Comment(s): "No problems with Sleep Apnea now". "Nodules on bottom jaw". History of Any Multi-Drug Resistant Organisms: None Reported Past Surgical History: Cholecystectomy, Orthopedic Surgery Additional Past Surgical History / Comment(s): Surgery for Sleep Apnea, surgery for nasal polyps, "warthin wart" removed from left side of neck, left rotator cuff surgery. Past Anesthesia/Blood Transfusion Reactions: Previous Problems w/ Anesthesia Additional Past Anesthesia/Blood Transfusion Reaction / Comment(s): "Hard time waking up after last surgery." Difficult intubation with last surgery, "said they tried 4-5 times and then had to do something else." "Have nodules on my bottom jaw and a cracked tooth they need to be careful of." Past Psychological History: ADD/ADHD, Anxiety, Depression Smoking Status: Former smoker - Past Family History Mother Family Medical History: No Reported History Father Family Medical History: Hypertension, Myocardial Infarction (OR) General Exam Limitations: no limitations General appearance: alert, in no apparent distress Head exam: Present: atraumatic, normocephalic, normal inspection Eye exam: Present: normal appearance, PERRL, EOMI. Absent: scleral icterus, conjunctival injection, periorbital swelling ENT exam: Present: normal exam, mucous membranes moist Neck exam: Present: normal inspection. Absent: tenderness, meningismus, lymphadenopathy Respiratory exam: Present: normal lung sounds bilaterally. Absent: respiratory distress, wheezes, rales, rhonchi, stridor Cardiovascular Exam: Present: regular rate, normal rhythm, normal heart sounds. Absent: systolic murmur, diastolic murmur, rubs, gallop, clicks GI/Abdominal exam: Present: soft, normal bowel sounds. Absent: distended, tenderness, guarding, rebound, rigid Extremities exam: Present: normal inspection, full ROM, normal capillary refill. Absent: tenderness, pedal edema, joint swelling, calf tenderness Back exam: Present: normal inspection Neurological exam: Present: alert, oriented X3, CN II-XII intact Psychiatric exam: Present: normal affect, normal mood Skin exam: Present: warm, dry, intact, normal color. Absent: rash Course Vital Signs 03/27/25 03/27/25 03/27/25 15:44 16:03 17:38 Temperature 97.7 F Pulse Rate 63 60 78 Respiratory 16 16 18 Rate Blood Pressure 154/98 161/95 134/87 O2 Sat by Pulse 95 97 97 Oximetry 03/27/25 03/27/25 18:00 18:24 Temperature 98.1 F Pulse Rate 68 74 Respiratory 18 18 Rate Blood Pressure 162/116 165/102 O2 Sat by Pulse 94 L 98 Oximetry Chest Pain MDM - MDM Was pt. sent in by a medical professional or institution (, PA, WARP TIER, urgent care, hospital, or detention...) When possible be specific @ -No Did you speak to anyone other than the patient for history (EMS, parent, family, police, friend...)? What history was obtained from this source @ -Spoke with family for history Did you review nursing and triage notes (agree or disagree)? Why? @ -I reviewed and agree with nursing and triage notes Were old charts reviewed (outside hosp., previous admission, EMS record, old EKG, old radiological studies, urgent care reports/EKG's, detention records)? Report findings @ -No old charts were reviewed Differential Diagnosis (chest pain, altered mental status, abdominal pain women, abdominal pain men, vaginal bleeding, weakness, fever, dyspnea, syncope, headache, dizziness, GI bleed, back pain, seizure, CVA, palpatations, mental health, musculoskeletal)? @ -Differential Chest Pain: Stable Angina, Unstable Angina, STEMI, NSTEMI Aortic Dissection, Pneumothorax, Musculoskeletal, Esophageal Spasm GERD, Cholecystitis, Pancreatitis, Zoster, this is not meant to be an all-inclusive list. EKG interpreted by me (3pts min.). @ - First EKG completed at 1554 demonstrates a sinus rhythm with rate of 62. Parable 159. QRS 92. QTc of 428. There is a biphasic T waves in the inferior and lateral leads. No acute ST segment elevation Second EKG completed at 1602 demonstrates sinus rhythm with a rate of 63. MO interval 158. QRS 89. QTc of 429. Continues to have inverted T wave with biphasic in V5 V6 with no acute ST segment elevation Third EKG done at 1649 demonstrates sinus rhythm with rate of 80. MO interval 160. QRS 90. QTc of 442. Continued inverted biphasic T wave in inferior and lateral leads with no acute ST segment elevation Fourth EKG completed at 1738 demonstrates sinus rhythm with a rate of 67. MO interval 164. QRS 86. QTc of 412. Biphasic T wave and with inversion in 2 and aVF X-rays interpreted by me (1pt min.). @ -Yes which demonstrates no acute process CT interpreted by me (1pt min.). @ -None done U/S interpreted by me (1pt. min.). @ -None done What testing was considered but not performed or refused? (CT, X-rays, U/S, labs)? Why? @ -None What meds were considered but not given or refused? Why? @ -None Did you discuss the management of the patient with other professionals (professionals i.e. , PA, WARP TIER, lab, RT, psych nurse, drug abuse social worker, washery boss, teacher, classifications officer cc/cm, outpatient case manager)? Give summary @ -Spoke with Dr. Schwartz who does present to the emergency department and evaluates the patient. Also spoke with Dr. Redding for admission Was smoking cessation discussed for >3mins.? @ -No Was critical care preformed (if so, how long)? @ -35 minutes for management of NSTEMI Were there social determinants of health that impacted care today? How? (Homelessness, low income, unemployed, alcoholism, drug addiction, transportation, low edu. Level, literacy, decrease access to med. care, alf, rehab)? @ -No Was there de-escalation of care discussed even if they declined (Discuss DNR or withdrawal of care, Hospice)? DNR status @ -No What co-morbidities impacted this encounter? (DM, HTN, Smoking, COPD, CAD, Cancer, CVA, ARF, Chemo, Hep., AIDS, mental health diagnosis, sleep apnea, morbid obesity)? @ -High cholesterol Was patient admitted / discharged? Hospital course, mention meds given and route, prescriptions, significant lab abnormalities, going to OR and other pertinent info. @ -Upon arrival patient seen and evaluated in bed 6. Thorough history and physical exam was performed. Patient placed on continuous pulse ox and cardiac monitoring. Twelve-lead EKG is obtained which is suspicious for biphasic T wave in inferior lateral leads. There is no criteria for STEMI at this time. Serial EKGs are performed to watch for any evolution. Laboratory studies are conducted. I did attempt to treat the patient's pain with morphine, nitro for which the patient does not have any resolution. Pain does become worse. Fourth EKG is performed and then I spoke with Dr. Schwartz. Informed him that patient continues to have very suspicious EKG with ongoing pain. He does agree to come to the emergency department to evaluate the patient. He is agreeable to taking the patient to the Mechanical Facilities Technician. Patient is started on heparin. Spoke with Dr. Redding for the admission Undiagnosed new problem with uncertain prognosis? @ -No Drug Therapy requiring intensive monitoring for toxicity (Heparin, Nitro, Insulin, Cardizem)? @ -Heparin Were any procedures done? @ -No Diagnosis/symptom? @ -Acute chest pain, NSTEMI Acute, or Chronic, or Acute on Chronic? @ -Acute Uncomplicated (without systemic symptoms) or Complicated (systemic symptoms)? @ -Complicated Side effects of treatment? @ -No Exacerbation, Progression, or Severe Exacerbation? @ -No Poses a threat to life or bodily function? How? (Chest pain, [place], OR, pneumonia, PE, COPD, DKA, ARF, appy, cholecystitis, CVA, Diverticulitis, Homicidal, Suicidal, threat to staff... and all critical care pts) @ -Yes this patient does have signs of ischemia on EKG Disposition Clinical Impression: Chest pain, Acute non-ST elevation myocardial infarction (NSTEMI) Disposition: ADMITTED IP TO THIS [facility] Condition: Serious Is patient prescribed a controlled substance at d/c from ED?: No Time of Disposition: 18:07 Decision to Admit Reason: Admit from EC Decision Date: 03/27/25 Decision Time: 18:07
[2025-03-27] MEDS ORDERED: HEPARIN SODIUM 1,000 UN/ML (10ML VL) IV PRN (17:33)
[2025-03-27] MEDS: HEPARIN SOD,PORK IN 0.45% NACL 25,000 UNIT in 0.45% NACL 1 250ML.BAG IV SCH (17:43)
[2025-03-27] MEDS: HEPARIN SODIUM 1,000 UN/ML (10ML VL) IV ONE (17:45)
[2025-03-27] MEDS ORDERED: MORPHINE SULFATE 4 MG/ML SYRINGE IV PRN (18:07)
[2025-03-27] MEDS ORDERED: NALOXONE 0.4 MG/ML 1 ML VIAL IV PRN (18:07)
[2025-03-27] MEDS ORDERED: Magnesium Replacement Protocol 1 EACH MISC MISCELLANE PRN (18:07)
[2025-03-27] MEDS ORDERED: Potassium Replacement Protocol 1 EACH MISC MISCELLANE PRN (18:07)
--- NOTE | 2025-03-27 18:08 | XR ---
EXAMINATION TYPE: XR chest 2V DATE OF EXAM: 03/27/2025 5:48 PM COMPARISON: Chest radiographs from 09/23/2010 CLINICAL INDICATION: Male, 64 years old with history of Chest Pain; TECHNIQUE: XR chest 2V Frontal and lateral views of the chest. FINDINGS: Lungs/Pleura: There is no evidence of pleural effusion, focal consolidation, or pneumothorax. Pulmonary vascularity: Pulmonary vascular congestion. Heart/mediastinum: Cardiomediastinal silhouette is unremarkable. Musculoskeletal: No acute osseous pathology. IMPRESSION: Mild pulmonary edema [facility] Jason Rasheed, , 03/27/2025 6:05 PM
[2025-03-27] MEDS: SODIUM CHLORIDE 0.9% 1,000 ML IV ONE (18:27)
--- NOTE | 2025-03-27 18:33 | P.CRDCN ---
History of Present Illness Consult date: 03/27/25 History of present illness: HISTORY OF PRESENTING ILLNESS: 64 with past [id number] dyslipidemia not taking medications on regular basis. No other reported medical history Reports that he had substernal chest heaviness symptoms on 03/25/2025 however he did not come to the ER. He took extra Tums which did not subside his symptoms but he rested in hopes of getting better. 03/27/2025 this morning he had a more intense substernal chest heaviness along with some diaphoresis and radiation of pain in the back which is not resolving therefore decided to come to the ER. He also reported last week he had an episode of feeling dizzy weak low energy and presyncope. On admission he had troponin checked which were elevated. For this cardiology was consulted. I reviewed the EKG and it appeared concerning with Q waves inferiorly with an evolving ST changes suggestive of late presenting VT. Because he was having substernal chest pressure he was taken to the [facility]. ................................................................................ .............................................................. Pertient Vitals: 154/98, heart rate 63 Pertient Labs: Hb 17, WBC 10, BUN 17, creatinine 0.7, troponin 1.4 NT-proBNP 700 EKG: Sinus rhythm, Q waves in inferior leads with evolving ST changes with inverted T waves in inferolateral leads. Pertient Imaging: Does not show mediastinal widening, no signs of secondary consolidation congestion .............. ................................................................................ ........................................... REVIEW OF SYSTEMS: 14 point review of system is negative except what is mentioned above in HPI. ................................................................................ .............................................................. PHYSICAL EXAMINATION: Neck: Brisk carotid upstroke, no jugular venous distention. Lungs: Clear to auscultation. Heart: Regular rate and rhythm, S1-S2, , no murmur or rub. Abdomen: Soft nontender, positive bowel sounds. Extremities: No edema, intact distal pulses. Neuro: Alert, oritented, no focal deficits. Detailed neuro exam was not p erformed. ................................................................................ .............................................................. ASSESSMENT: # Late presenting inferior-lateral VT # Dyslipidemia # Essential hypertension # Obesity PLAN: Plan for cardiac catheterization Obtain echocardiogram Zain Schwartz MD, [facility], [facility] HISTORY OF PRESENTING ILLNESS: 64 with past [id number] dyslipidemia not taking medications on regular basis. No other reported medical history Reports that he had substernal chest heaviness symptoms on 03/25/2025 however he did not come to the ER. He took extra Tums which did not subside his symptoms but he rested in hopes of getting better. 03/27/2025 this morning he had a more intense substernal chest heaviness along with some diaphoresis and radiation of pain in the back which is not resolving therefore decided to come to the ER. He also reported last week he had an episode of feeling dizzy weak low energy and presyncope. On admission he had troponin checked which were elevated. For this cardiology was consulted. I reviewed the EKG and it appeared concerning with Q waves inferiorly with an evolving ST changes suggestive of late presenting VT. Because he was having substernal chest pressure he was taken to the [facility]. ...... ................................................................................ ........................................................ Pertient Vitals: 154/98, heart rate [facility] Labs: Hb 17, WBC 10, BUN 17, creatinine 0.7, troponin 1.4 NT-proBNP 700 EKG: Sinus rhythm, Q waves in inferior leads with evolving ST changes with inverted T waves in inferolateral leads. Pertient Imaging: Does not show mediastinal widening, no signs of secondary consolidation congestion .......................... ................................................................................ ............................... REVIEW OF SYSTEMS: 14 point review of system is negative except what is mentioned above in HPI. ................................................................................ .............................................................. PHYSICAL EXAMINATION: Neck: Brisk carotid upstroke, no jugular venous distention. Lungs: Clear to auscultation. Heart: Regular rate and rhythm, S1-S2, , no murmur or rub. Abdomen: Soft nontender, positive bowel sounds. Extremities: No edema, intact distal pulses. Neuro: Alert, oritented, no focal deficits. Detailed neuro exam was not performed. . ................................................................................ ............................................................. ASSESSMENT: # Late presenting inferior-lateral VT # Dyslipidemia # Essential hypertension # Obesity PLAN: Plan for cardiac catheterization Obtain echocardiogram Zain Schwartz MD, FAC, VI Past Medical History Past Medical History: GERD/Reflux, Hyperlipidemia, Osteoarthritis (OA), Sleep Apnea/CPAP/BIPAP Additional Past Medical History / Comment(s): "No problems with Sleep Apnea now". "Nodules on bottom jaw". History of Any Multi-Drug Resistant Organisms: None Reported Past Surgical History: Cholecystectomy, Orthopedic Surgery Additional Past Surgical History / Comment(s): Surgery for Sleep Apnea, surgery for nasal polyps, "warthin wart" removed from left side of neck, left rotator cuff surgery. Past Anesthesia/Blood Transfusion Reactions: Previous Problems w/ Anesthesia Additional Past Anesthesia/Blood Transfusion Reaction / Comment(s): "Hard time waking up after last surgery." Difficult intubation with last surgery, "said they tried 4-5 times and then had to do something else." "Have nodules on my bottom jaw and a cracked tooth they need to be careful of." Past Psychological History: ADD/ADHD, Anxiety, Depression Smoking Status: Former smoker - Past Family History Mother Family Medical History: No Reported History Medications and Allergies Home Medications Medication Instructions Recorded Confirmed Type Lisdexamfetamine Dimesylate 70 mg PO DAILY PRN 07/18/19 03/27/25 History [Vyvanse] ALPRAZolam [Xanax] 0.25 mg PO HS 03/27/25 03/27/25 History Omeprazole 20 mg PO BID 03/27/25 03/27/25 History Allergies Allergy/AdvReac Type Severity Reaction Status Date / Time No Known Allergies Allergy Verified 03/27/25 18:18 Physical Exam Vitals: Vital Signs Temp Pulse Resp BP Pulse Ox 03/27/25 18:24 98.1 F 74 18 165/102 98 03/27/25 18:00 68 18 162/116 94 L 03/27/25 17:38 78 18 134/87 97 03/27/25 16:03 60 16 161/95 97 03/27/25 15:44 97.7 F 63 16 154/98 95 Intake and Output 03/27/25 03/27/25 03/27/25 06:59 14:59 22:59 Other: Weight 104.326 kg Results 03/27/25 16:38 03/27/25 16:38 Cardiac Enzymes 03/27/25 03/27/25 Range/Units 16:38 16:38 AST 34 (17-59) U/L Troponin I 1.430 H* (0.000-0.034) ng/mL Coagulation 03/27/25 Range/Units 16:38 PT 11.5 (10.0-12.5) sec APTT 24.0 (22.0-30.0) sec CBC 03/27/25 Range/Units 16:38 WBC 10.48 H (4.50-10.00) 10*3/uL RBC 5.88 H (4.40-5.60) 10*6/uL Hgb 17.3 H (13.0-17.0) g/dL Hct 50.6 H (39.6-50.0) % Plt Count 203 (140-440) 10*3/uL Comprehensive Metabolic Panel 03/27/25 Range/Units 16:38 Sodium 136 L (137-145) mmol/L Potassium 4.9 (3.5-5.1) mmol/L Chloride 103 (98-107) mmol/L Carbon Dioxide 22 (22-30) mmol/L BUN 17 (9-20) mg/dL Creatinine 0.79 (0.66-1.25) mg/dL Glucose 110 H (74-99) mg/dL Calcium 9.8 (8.4-10.2) mg/dL AST 34 (17-59) U/L ALT 24 (4-49) U/L Alkaline Phosphatase 123 (38-126) U/L Total Protein 7.6 (6.3-8.2) g/dL Albumin 4.2 (3.5-5.0) g/dL Current Medications Generic Name Dose Route Start Last Admin Trade Name Freq PRN Reason Stop Dose Admin Heparin Sodium (Porcine) 0 unit 03/27/25 17:33 Heparin Sodium 1,000 Un/Ml (10ml Vl) IV PER PROTOCOL PRN Low PTT Protocol Heparin Sodium/Sodium Chloride 250 mls @ 10 mls/hr 03/27/25 17:45 03/27/25 17:43 25,000 unit/ Sodium Chloride IV 9.585 units/kg/hr .Q24H HARDIK 10 mls/hr Administration Protocol 9.585 UNITS/KG/HR Miscellaneous Information 1 each 03/27/25 18:07 Potassium Replacement Protocol 1 Each Misc MISCELLANE DAILY PRN Per Protocol Miscellaneous Information 1 each 03/27/25 18:07 Magnesium Replacement Protocol 1 Each Misc MISCELLANE DAILY PRN Per Protocol Protocol Morphine Sulfate 4 mg 03/27/25 18:07 Morphine Sulfate 4 Mg/Ml Syringe IV Q3HR PRN Severe Pain (Scale 7 to 10) Naloxone HCl 0.2 mg 03/27/25 18:07 Naloxone 0.4 Mg/Ml 1 Ml Vial IV Q2M PRN Opioid Reversal Intake and Output 03/27/25 03/27/25 03/27/25 06:59 14:59 22:59 Other: Weight 104.326 kg Patient Weight 03/28/25 06:59 Weight 104.326 kg 03/27/25 16:38 03/27/25 16:38
[2025-03-27] MEDS: MIDAZOLAM 2 MG/2 ML VIAL IVP ONE (18:35)
[2025-03-27] MEDS: fentaNYL (PF) 50 MCG/1 ML VIAL IVP ONE (18:35)
[2025-03-27] MEDS: LIDOCAINE 1% INJ 10MG/ML (20 ML MDV) SQ ONE (18:37)
[2025-03-27] MEDS: VERAPAMIL SYRINGE (5 MG/10 ML) INTRAARTER ONE (18:37)
[2025-03-27] MEDS: HEPARIN SODIUM 1,000 UN/ML (10ML VL) IVP ONE (18:52)
[2025-03-27] MEDS: PRASUGREL 10 MG TAB PO ONE (18:54)
[2025-03-27] MEDS: HEPARIN SODIUM,PORCINE (1 ML) 2,500 UNIT in SODIUM CHLORIDE 0.9% 250 ML IRRIGATION ONE (18:55)
[2025-03-27] MEDS: HEPARIN SODIUM,PORCINE 10,000 UNIT in SODIUM CHLORIDE 0.9% 1,000 ML IRRIGATION ONE (18:55)
[2025-03-27] MEDS: IOPAMIDOL-370 100ML BTL INJ ONE ×2 (18:59→19:27)
--- NOTE | 2025-03-27 19:06 | P.CARDCATH ---
Date of Procedure: 03/27/25 Description of Procedure: DIAGNOSTIC CORONARY ANGIOGRAPHY and LEFT HEART CATH REPORT PROCEDURES PERFORMED: Left heart catheterization Selective coronary angiography Moderate conscious sedation 10 mins Right radial access INDICATION: Late presenting inferolateral STEMI BRIEF HPI: 64-year-old with prior medical history of dyslipidemia not on medications presented to the hospital because of substernal chest heaviness radiating to back. On admission he had concerning EKG with Q waves in inferolateral leads with evolving ST changes. On admission he had elevated troponin, in the ER he had ongoing substernal chest pressure with minimal response to nitroglycerin therefore he was taken to the [facility]. CONSENT: I have explained the procedural steps of above-mentioned procedures in layman's terms to the patient. I discussed the risks (including but not limited to stroke, emergent vascular or cardiac surgery or ), benefits and alternative therapies for the above-mentioned procedure. I discussed the risks of sedation/analgesia and blood product administration (if indicated). The patient has indicated understanding and acceptance of these risks. Conscious Sedation: Patient's ECG, heart rate, blood pressure, pulse oximetry were monitored throughout the duration of procedure under my direct supervision. 1 mg Versed and 50 mcg Fentanyl were used for induction of moderate conscious sedation. Total duration of moderate concious sedation 10 minutes. PROCEDURAL DETAILS: Patient was prepped and draped in sterile fashion. 1% lidocaine was infiltrated over the right radial artery. Right radial access was obtained via modified seldinger technique. Medications: 5mg of verapamil was administed in the radial sheet. 4000 units of Heparin was administed in the ER thereafter he will start on heparin drip. Heparin drip was turned off just before the heart cath procedure was started. Wires and Catheter used: J wire was advanced under fluroscopy to get to aortic root. 5 [place] islander JR 4 diagnostic catheter was utilized obtain left ventricular pressure and pressure gradint across aortic valve. 5 [place] islander JR 4 diagnostic catheter was used to selectively engage the right coronary ostium. 5 [place] island[place] JL4 diagnostic catheter was utilized to selectively engage the left coronary ostium. Angiographic images were reviewed in detail. Catheter and wire were removed. Radial sheet was flushed. The right radial sheath was removed and a TR band was placed. Patent hemostasis was achieved. The patient tolerated the procedure well. Patient was transported back to the post catheterization holding area in stable condition. TECHNICAL DETAILS Total radiation: 400 mGy Total fluro time: 2.7 minutes Total contrast used: Isovue [60 ml] Complications: [none] Estimated Blood loss: less than 15 ml HEMODYNAMICS: Aortic Pressure: 128/67 mmHg. LV pressure: 132/2 mmHg. LVEDP 6 mmHg. There was no significant gradient across the aortic valve. SELECTIVE CORONARY ARTERIOGRAPHY: LEFT MAIN: The left main is short and large caliber vessel. It bifurcates into the LAD and circumflex. Left main appears angiographically normal. LEFT ANTERIOR DESCENDING CORONARY ARTERY: LAD is large caliber and reaches up to the apex. Proximal LAD is angiographically patent. Mid LAD after giving septal hospital admitting clerk has 40 to 50% tubular disease. Distal LAD appears angiographically patent. LAD gives rise to small diagonal branch which appears angiographically patent. LEFT CIRCUMFLEX CORONARY ARTERY: LCx is codominant. Large caliber vessel. Proximal LCx appears angiographically patent. Proximal LCx gives rise to 2 small OM branches which are patent. Distal 2/3 of Mid LCx has a subtotal 99% stenosis due to ruptured plaque. Distally it continues to give PL branches. YU II flow. RIGHT CORONARY ARTERY: Codominant vessel, large caliber. RCA appears angiographically patent with mild-moderate irregularities. Distal to previous to PDA which appears angiographically patent with mild luminal irregularities. IMPRESSION: 1. 99% mid LCx occlusion with YU II flow. LCx is codominant 2. 50% mid LAD tubular disease 3. Minimal luminal irregularities in RCA 4. Normal LVEDP PLAN: Emergent PCI of LCx with Dr. Webb Further recommendations to follow Performing Physician Zain Schwartz MD, FACC, RPVI Thank you for allowing [facility] to participate in this patient's care. Feel free to reach out in case of any followup questions.
[2025-03-27] MEDS: NITROGLYCERIN 1000MCG/10ML SYRINGE INTRACORON ONE (19:13)
[2025-03-27] MEDS ORDERED: ZOLPIDEM 5 MG TAB PO PRN (19:35)
[2025-03-27] MEDS ORDERED: MAG HYDROX/AL HYDROX/SIMETH 30 ML CUP PO PRN (19:35)
[2025-03-27] MEDS ORDERED: RX INFO: IV CONTRAST WAS GIVEN 1 EACH MISC MISCELLANE PRN (19:35)
[2025-03-27] MEDS ORDERED: ATROPINE SULFATE 0.1 MG/ML 10ML SYRINGE IV PRN (19:35)
[2025-03-27] MEDS ORDERED: NITROGLYCERIN SL TABS 0.4 MG TAB SUBLINGUAL PRN (19:35)
--- NOTE | 2025-03-27 19:42 | P.CARDCATH ---
Date of Procedure: 03/27/25 Description of Procedure: PERCUTANEOUS TRANSLUMINAL CORONARY ANGIOPLASTY CLINICAL INFORMATION: The patient is a 64-year-old male with a history of hyperlipidemia who has been complaining of chest discomfort for the last 3 days, worse today, his EKG showed QS pattern inferiorly and mild ST elevation, underw ent cardiac catheterization by Dr. Schwartz and was found to have critical stenosis in the mid left circumflex. Recommendations were made regarding angioplasty and stenting. The procedure as well as the risks and the complications were discussed with the patient who was in full understanding and agreement. PROCEDURE: A 6 [place] CLS 3.5 guiding catheter was introduced into the system. After cannulating the left main, a 0.014 BMW J-wire was advanced across the lesion and positioned distally. Following that a 2.5 x 12 mm trek balloon was advanced and inflated at 8 atmosphere. Following that a [employer] IVUS catheter was introduced and images were obtained and revealed the distal lumen of 3.5 mm in diameter. Following that a 3.5 x 23 mm Xience Skypoint stent was deployed. It was dilated at 16 shelli. Repeat IVUS imaging was performed and revealed mild under deployment in the midsegment. At that point a 3.5 x 15 mm NC trek balloon was advanced and 2 inflations at maximum 12 shelli were done. After the last inflation, after appropriate wait, the balloon and the guidewire were withdrawn back into the guiding catheter. Images were obtained and repeated. Those images reveal stable successful stenting. At that point, the guiding catheter, the balloon, and guidewire were removed. The sheath was removed. Hemostasis was obtained with deployment of a TR band. There were no immediate complications. The patient was returned to the room in stable condition. Of note, the patient received additional 5500 units of heparin as well as Effient. His ACT was followed. There was no immediate complications. His chest and back discomfort improved. He had no significant EKG changes RESULTS: Successful stenting of the mid left circumflex with reduction of stenosis from 99% with intracoronary thrombus to less than 5% with IVUS imaging and YU-3 flow. RECOMMENDATIONS: The patient will continue on aspirin and Effient for 1 year without any interruption in addition to aggressive coronary risks modification, maintaining LDL to less than 70 mg/dL. The findings and recommendations were discussed with the patient and the family, they are in full understanding and agreement. Duration of sedation: 39 minutes
[2025-03-27 19:43] LABS: Glucose,Whole Blood 113 mg/dL (70-110)
[2025-03-27] MEDS: METOPROLOL TARTRATE 25 MG TAB PO SCH (20:34)
[2025-03-27] MEDS: PANTOPRAZOLE 40 MG TABLET PO SCH (20:34)
[2025-03-27] MEDS: ATORVASTATIN 80 MG TAB PO SCH (20:34)
[2025-03-27] MEDS: SODIUM CHLORIDE 0.9% 1,000 ML in EMPTY BAG 1 BAG IV SCH (20:35)
[2025-03-27] MEDS: ALPRAZolam 0.25 MG TAB PO SCH (22:06)
[2025-03-28 02:24] LABS: Cholesterol 244.00 mg/dL (0.00-200.00); HDL Cholesterol 37.60 mg/dL (40.00-60.00); LDL Cholesterol,Calculated 133.8 mg/dL (0.0-131.0); Triglycerides 363.00 mg/dL (0.00-149.00); VLDL Calculation 72.60 mg/dL (5.00-40.00)
[2025-03-28 03:38] LABS: Basophils # (A) 0.07 10*3/uL (0.00-0.10); Basophils % (A) 0.8 %; Eosinophils # (A) 0.00 10*3/uL (0.04-0.35); Eosinophils % (A) 0.0 %; HCT 46.6 % (39.6-50.0); HGB 15.7 g/dL (13.0-17.0); Lymphocytes # (A) 2.40 10*3/uL (0.90-5.00); Lymphocytes % (A) 26.1 %; MCH 28.8 pg (27.0-32.0); MCHC 33.7 g/dL (32.0-37.0); MCV 85.5 fL (80.0-97.0); Monocytes # (A) 0.71 10*3/uL (0.20-1.00); Monocytes % (A) 7.7 %; Neutrophils # (A) 5.97 10*3/uL (1.80-7.70); Neutrophils % (A) 64.9 %; Platelet Count 188 10*3/uL (140-440); RBC 5.45 10*6/uL (4.40-5.60); RDW 14.6 % (11.5-14.5); WBC 9.20 10*3/uL (4.50-10.00)
[2025-03-28 03:55] LABS: African American GFR (CKD) >90 (>60 ml/min/1.73 sqM); Anion Gap 7 mmol/L; Blood Urea Nitrogen 16 mg/dL (9-20); Calcium 9.1 mg/dL (8.4-10.2); Carbon Dioxide 23 mmol/L (22-30); Chloride 104 mmol/L (98-107); Glucose 117 mg/dL (74-99); Non-African American GFR(CKD) >90 (>60 ml/min/1.73 sqM); Potassium 4.2 mmol/L (3.5-5.1); Sodium 134 mmol/L (137-145)
--- NOTE | 2025-03-28 07:45 | P.PN ---
Subjective Progress Note Date: 03/28/25 PROGRESS NOTE The patient is a 64-year-old male with a prior history of hyperlipidemia who presented with symptoms of chest comfort for 3 days and was found to have QS pattern in inferior leads with mild ST segment elevation. He underwent coronary angiography by Dr. Schwartz and was found to have severe obstructive disease in the mid left circumflex and underwent stenting of that vessel. He is feeling well this morning, he denies any chest discomfort, dizziness or palpitations. He continues to be in sinus mechanism. Hemodynamically he is stable. He has no prior similar symptoms. Medications: Aspirin, prasugrel 10 mg daily, Lipitor 80 mg daily, metoprolol tartrate 25 mg twice a day, Protonix PHYSICAL EXAMINATION: Blood pressure 129/98 heart rate 50 LUNGS: Clear to auscultation HEART: Regular rate and rhythm, S1, S2. No S3. No systolic murmur ABDOMEN: Soft, nontender, no organomegaly EXTREMETIES: No edema, right radial pulse intact LAB: Hemoglobin 15.7, WBC 9.2, BUN 16, creatinine 0.74. LDL 134 with a total cholesterol of 244 IMPRESSION: 1. Status post myocardial infarction with late presentation and stenting of the left circumflex 2. History of hyperlipidemia 3. History of gastroesophageal reflux disease PLAN: 1. Continue present therapy 2. Obtain an echocardiogram with Doppler 3. Increase physical activity 4. Transfer to telemetry 5. Depending on his progress further recommendations will be made Objective - Vital Signs Vital signs: Vital Signs Temp 97.9 F 03/28/25 04:00 Pulse 48 L 03/28/25 07:00 Resp 22 03/28/25 07:00 BP 129/98 03/28/25 07:00 Pulse Ox 94 L 03/28/25 07:00 FiO2 Intake & Output 03/27/25 03/28/25 03/28/25 18:59 06:59 18:59 Intake Total 240 1620 Output Total 1500 0 Balance 240 120 0 Weight 104.326 kg 103.8 kg Intake: IV 240 1040 Sodium Chloride 0.9% 1, 1040 000 ml In Empty Bag 1 bag @ 1 ML/KG/HR 104.326 mls /hr IV .[id number] HARDIK Rx#: [id number] Oral 580 Output: Urine 1500 0 - Labs CBC & Chem 7: 03/28/25 03:13 03/28/25 03:13 Labs: Abnormal Lab Results - Last 24 Hours (Table) 03/27/25 03/27/25 03/27/25 Range/Units 16:38 16:38 16:38 WBC 10.48 H (4.50-10.00) 10*3/uL RBC 5.88 H (4.40-5.60) 10*6/uL Hgb 17.3 H (13.0-17.0) g/dL Hct 50.6 H (39.6-50.0) % Immature Gran # (0.00-0.04) 10*3/uL Eosinophils # 0.00 L (0.04-0.35) 10*3/uL Sodium 136 L (137-145) mmol/L Glucose 110 H (74-99) mg/dL POC Glucose (mg/dL) (70-110) mg/dL Troponin I 1.430 H* (0.000-0.034) ng/mL Triglycerides (0.00-149.00) mg/dL Cholesterol (0.00-200.00) mg/dL LDL Cholesterol, Calc (0.0-131.0) mg/dL VLDL Cholesterol, Calc (5.00-40.00) mg/dL HDL Cholesterol (40.00-60.00) mg/dL 03/27/25 03/27/25 03/28/25 Range/Units 16:38 19:41 03:13 WBC (4.50-10.00) 10*3/uL RBC (4.40-5.60) 10*6/uL Hgb (13.0-17.0) g/dL Hct (39.6-50.0) % Immature Gran # 0.05 H (0.00-0.04) 10*3/uL Eosinophils # 0.00 L (0.04-0.35) 10*3/uL Sodium (137-145) mmol/L Glucose (74-99) mg/dL POC Glucose (mg/dL) 113 H (70-110) mg/dL Troponin I (0.000-0.034) ng/mL Triglycerides 363.00 H (0.00-149.00) mg/dL Cholesterol 244.00 H (0.00-200.00) mg/dL LDL Cholesterol, Calc 133.8 H (0.0-131.0) mg/dL VLDL Cholesterol, Calc 72.60 H (5.00-40.00) mg/dL HDL Cholesterol 37.60 L (40.00-60.00) mg/dL 03/28/25 Range/Units 03:13 WBC (4.50-10.00) 10*3/uL RBC (4.40-5.60) 10*6/uL Hgb (13.0-17.0) g/dL Hct (39.6-50.0) % Immature Gran # (0.00-0.04) 10*3/uL Eosinophils # (0.04-0.35) 10*3/uL Sodium 134 L (137-145) mmol/L Glucose 117 H (74-99) mg/dL POC Glucose (mg/dL) (70-110) mg/dL Troponin I (0.000-0.034) ng/mL Triglycerides (0.00-149.00) mg/dL Cholesterol (0.00-200.00) mg/dL LDL Cholesterol, Calc (0.0-131.0) mg/dL VLDL Cholesterol, Calc (5.00-40.00) mg/dL HDL Cholesterol (40.00-60.00) mg/dL
[2025-03-28] MEDS: ASPIRIN 81 MG PO SCH (09:47)
[2025-03-28] MEDS: PRASUGREL 10 MG TAB PO SCH (10:54)
[2025-03-28] MEDS: METOPROLOL TARTRATE 12.5 MG TAB PO SCH (11:00)
--- NOTE | 2025-03-28 11:40 | CA ---
Transthoracic Echo Report Name: Renato Bonner Age: 64 Gender: M : 1960 Exam Date: 03/28/2025 08:12 Exam Location: [facility] Ht (in): 69 Wt (lb): 230 Ordering Physician: Zain Schwartz MD ([id number]) Attending/Referring Phys: [employer] Operator Claudia Melton RDCS Procedure CPT: Indications: inferolateral stemi Cardiac Hx: stent Technical Quality: Good Contrast 1: Total Dose (mL): Contrast 2: Total Dose (mL): MEASUREMENTS (Male / Female) Normal Values 2D ECHO LV Diastolic Diameter PLAX 5.7 cm 4.2 - 5.9 / 3.9 - 5.3 cm LV Systolic Diameter PLAX 3.3 cm IVS Diastolic Thickness 1.3 cm 0.6 - 1.0 / 0.6 - 0.9 cm LVPW Diastolic Thickness 1.3 cm 0.6 - 1.0 / 0.6 - 0.9 cm LV Relative Wall Thickness 0.5 RV Internal Dim ED PLAX 3.3 cm LA Systolic Diameter LX 4.0 cm 3.0 - 4.0 / 2.7 - 3.8 cm LV Diastolic Volume MOD 4C 136.0 cm??? LV Systolic Volume MOD 4C 46.1 cm??? LV Ejection Fraction MOD 4C 66.1 % LV Cardiac Index MOD 4C 2041.3 cm???/min???m??? LV Diastolic Length 4C 8.5 cm LV Systolic Length 4C 6.9 cm LV Diastolic Volume MOD 2C 78.7 cm??? LV Systolic Volume MOD 2C 31.8 cm??? LV Ejection Fraction MOD 2C 59.6 % LV Cardiac Index MOD 2C 1064.5 cm???/min???m??? LV Diastolic Length 2C 7.9 cm LV Systolic Length 2C 6.9 cm M-MODE Aortic Root Diameter MM 3.8 cm AV Cusp Separation MM 2.3 cm DOPPLER AV Peak Velocity 164.0 cm/s AV Peak Gradient 10.8 mmHg AV Mean Velocity 102.3 cm/s AV Mean Gradient 4.9 mmHg AV Velocity Time Integral 34.5 cm LVOT Peak Velocity 95.6 cm/s LVOT Peak Gradient 3.7 mmHg LVOT Velocity Time Integral 24.5 cm Mitral E Point Velocity 117.0 cm/s Mitral A Point Velocity 118.6 cm/s Mitral E to A Ratio 1.0 MV Deceleration Time 305.3 ms TR Peak Velocity 222.2 cm/s TR Peak Gradient 19.8 mmHg Right Ventricular Systolic Press 29.9 mmHg FINDINGS Left Ventricle Left ventricular ejection fraction is estimated at 60-65 %. Left ventricular cavity size normal. Mild concentric left ventricular hypertrophy. Normal left ventricular wall motion. Right Ventricle Normal right ventricular size. Right ventricular systolic pressure within normal limits. Right Atrium Normal right atrial size. No right atrial thrombus or mass seen. Left Atrium Normal left atrial size. No left atrial thrombus or mass present. Mitral Valve Mild thickening/calcification of the posterior mitral valve leaflet. No mitral stenosis. No evidence for mitral valve prolapse. Trace to mild mitral regurgitation. Aortic Valve Trileaflet aortic valve. No aortic valve stenosis or regurgitation. Tricuspid Valve Structurally normal tricuspid valve. Trace to mild tricuspid regurgitation. Pulmonic Valve Structurally normal pulmonic valve. No pulmonic regurgitation. Pericardium No pericardial effusion. Aorta Normal size aortic root and proximal ascending aorta. CONCLUSIONS Hyperdynamic LV with EF between 60-65 Mitral annular calcification Previewed by: Dr. Jonathon Solis MD (Electronically Signed) Final Date: 28 March 2025 11:40
--- NOTE | 2025-03-28 11:58 | P.HPIM ---
History of Present Illness H&P Date: 03/28/25 Chief Complaint: Chest pain This is a 64-year-old gentleman with past medical history significant for gastroesophageal reflux disease, osteoarthritis, obesity, obstructive sleep apnea wears CPAP, hyperlipidemia, ADD/ADHD, anxiety, depression, former nicotine dependence and multiple other medical issues presented to the ER with intermittent midsternal chest pressure radiating down left arm and into back, accompanied by some diaphoresis, lightheadedness progressively worsening since Tuesday. Attempted Aleve, omeprazole, Tums without improvement. Denies shortness of breath. Denies fever or chills. Denies syncope. Elevated troponin of 1.430, evaluated by cardiology- EKG sinus rhythm, Q waves inferiorly with evolving ST changes.Patient taken to the Agricultural Extension Officer with concerns of late presenting inferior-lateral [place]. Cardiac cath reported critical stenosis of the mid left circumflex proceeded with angioplasty, successful stenting of the mid left circumflex. Tolerated procedure well. This morning sinus rhythm, denies chest pain, palpitations or shortness of breath. Echo pending. Maintained on aspirin, Effient ,Lipitor and metoprolol tartrate. Review of Systems ROS Statement: Those systems with pertinent positive or pertinent negative responses have been documented in the HPI. ROS Other: All systems not noted in ROS Statement are negative. Past Medical History Past Medical History: GERD/Reflux, Hyperlipidemia, Osteoarthritis (OA), Sleep Apnea/CPAP/BIPAP Additional Past Medical History / Comment(s): "No problems with Sleep Apnea now". "Nodules on bottom jaw". History of Any Multi-Drug Resistant Organisms: None Reported Past Surgical History: Cholecystectomy, Orthopedic Surgery Additional Past Surgical History / Comment(s): Surgery for Sleep Apnea, surgery for nasal polyps, "warthin wart" removed from left side of neck, left rotator cuff surgery. Past Anesthesia/Blood Transfusion Reactions: Previous Problems w/ Anesthesia Additional Past Anesthesia/Blood Transfusion Reaction / Comment(s): "Hard time waking up after last surgery." Difficult intubation with last surgery, "said they tried 4-5 times and then had to do something else." "Have nodules on my bottom jaw and a cracked tooth they need to be careful of." Past Psychological History: ADD/ADHD, Anxiety, Depression Smoking Status: Former smoker Past Alcohol Use History: Occasional Additional Past Alcohol Use History / Comment(s): Quit smoking 06/2019, smoked 1ppd. Past Drug Use History: None Reported - Past Family History Mother Family Medical History: No Reported History Father Family Medical History: Hypertension, Myocardial Infarction ([place]) Medications and Allergies Home Medications Medication Instructions Recorded Confirmed Type Lisdexamfetamine Dimesylate 70 mg PO DAILY PRN 07/18/19 03/27/25 History [Vyvanse] ALPRAZolam [Xanax] 0.25 mg PO HS 03/27/25 03/27/25 History Omeprazole 20 mg PO BID 03/27/25 03/27/25 History Allergies Allergy/AdvReac Type Severity Reaction Status Date / Time No Known Allergies Allergy Verified 03/27/25 18:18 Physical Exam Vitals: Vital Signs Temp Pulse Resp BP Pulse Ox 03/28/25 07:00 48 L 22 129/98 94 L 03/28/25 06:00 49 L 23 135/75 94 L 03/28/25 05:00 47 L 24 115/81 93 L 03/28/25 04:00 97.9 F 51 L 21 128/87 95 03/28/25 03:00 48 L 29 H 127/75 97 03/28/25 02:00 52 L 14 133/81 95 03/28/25 01:00 48 L 24 138/77 96 03/28/25 00:02 53 L 15 136/83 91 L 03/28/25 00:00 98.0 F 56 L 16 136/83 96 03/27/25 23:00 58 L 12 140/78 96 03/27/25 22:00 69 17 161/98 97 03/27/25 21:00 75 12 164/99 98 03/27/25 20:24 98.0 F 54 L 12 169/95 98 03/27/25 18:24 98.1 F 74 18 165/102 98 03/27/25 18:00 68 18 162/116 94 L 03/27/25 17:38 78 18 134/87 97 03/27/25 16:03 60 16 161/95 97 03/27/25 15:44 97.7 F 63 16 154/98 95 Intake and Output 03/27/25 03/28/25 03/28/25 22:59 06:59 14:59 Intake Total 1132 728 Output Total 1500 0 Balance 1132 -772 0 Intake: IV 552 728 Sodium Chloride 0.9% 1, 312 728 000 ml In Empty Bag 1 bag @ 1 ML/KG/HR 104.326 mls /hr IV .[id number] [facility] Rx#: [id number] Oral 580 Output: Urine 1500 0 Other: Weight 104.326 kg 103.8 kg PHYSICAL EXAM: VITAL SIGNS: [Reviewed] GENERAL: Pleasant, well-nourished, male , alert and oriented x 3, patient sitting up in bed, no acute distress HEENT: Normocephalic, atraumatic ,conjunctivae normal. eyes normal. NECK: Supple, no JVD. No thyroid enlargement. No LNs CARDIOVASCULAR: S1, S2 regular. No murmur RESPIRATION: Unlabored, equal air entry , essentially clear with bilateral bases diminished. ABDOMEN: Soft, nondistended, nontender . No guarding. no masses palpable. Positive bowel sounds. LEGS: No edema. no swelling, no calf tenderness, peripheral pulses intact. NERVOUS SYSTEM: Cranial N 2-12 grossly normal. No focal deficits. Strength and sensation grossly intact. Skin: Warm and dry, no rash. Results CBC & Chem 7: 03/28/25 03:13 03/28/25 03:13 Labs: Abnormal Lab Results - Last 24 Hours (Table) 03/27/25 03/27/25 03/27/25 Range/Units 16:38 16:38 16:38 WBC 10.48 H (4.50-10.00) 10*3/uL RBC 5.88 H (4.40-5.60) 10*6/uL Hgb 17.3 H (13.0-17.0) g/dL Hct 50.6 H (39.6-50.0) % Immature Gran # (0.00-0.04) 10*3/uL Eosinophils # 0.00 L (0.04-0.35) 10*3/uL Sodium 136 L (137-145) mmol/L Glucose 110 H (74-99) mg/dL POC Glucose (mg/dL) (70-110) mg/dL Troponin I 1.430 H* (0.000-0.034) ng/mL Triglycerides (0.00-149.00) mg/dL Cholesterol (0.00-200.00) mg/dL LDL Cholesterol, Calc (0.0-131.0) mg/dL VLDL Cholesterol, Calc (5.00-40.00) mg/dL HDL Cholesterol (40.00-60.00) mg/dL 03/27/25 03/27/25 03/28/25 Range/Units 16:38 19:41 03:13 WBC (4.50-10.00) 10*3/uL RBC (4.40-5.60) 10*6/uL Hgb (13.0-17.0) g/dL Hct (39.6-50.0) % Immature Gran # 0.05 H (0.00-0.04) 10*3/uL Eosinophils # 0.00 L (0.04-0.35) 10*3/uL Sodium (137-145) mmol/L Glucose (74-99) mg/dL POC Glucose (mg/dL) 113 H (70-110) mg/dL Troponin I (0.000-0.034) ng/mL Triglycerides 363.00 H (0.00-149.00) mg/dL Cholesterol 244.00 H (0.00-200.00) mg/dL LDL Cholesterol, Calc 133.8 H (0.0-131.0) mg/dL VLDL Cholesterol, Calc 72.60 H (5.00-40.00) mg/dL HDL Cholesterol 37.60 L (40.00-60.00) mg/dL 03/28/25 Range/Units 03:13 WBC (4.50-10.00) 10*3/uL RBC (4.40-5.60) 10*6/uL Hgb (13.0-17.0) g/dL Hct (39.6-50.0) % Immature Gran # (0.00-0.04) 10*3/uL Eosinophils # (0.04-0.35) 10*3/uL Sodium 134 L (137-145) mmol/L Glucose 117 H (74-99) mg/dL POC Glucose (mg/dL) (70-110) mg/dL Troponin I (0.000-0.034) ng/mL Triglycerides (0.00-149.00) mg/dL Cholesterol (0.00-200.00) mg/dL LDL Cholesterol, Calc (0.0-131.0) mg/dL VLDL Cholesterol, Calc (5.00-40.00) mg/dL HDL Cholesterol (40.00-60.00) mg/dL Thrombosis Risk Factor Assmnt - Choose All That Apply Each Factor Represents 1 point: History of prior major surgery (<1month) Each Risk Factor Represents 2 Points: Age 61-74 years Thrombosis Risk Factor Assessment Total Risk Factor Score: 3 Thrombosis Risk Factor Assessment Level: Moderate Risk Assessment and Plan Assessment: Late presenting inferior STEMI status post angioplasty with successful stenting of the mid left circumflex Hyperlipidemia Gastroesophageal reflux disease Obstructive sleep apnea Obesity, BMI 34 Prior nicotine dependence Osteoarthritis Anxiety Depression ADD, ADHD Plan: Continue on current medication resume ,monitoring and symptomatic treatment. Significant clinical improvement. Continue on current medication regimen. cardiology has cleared patient to transfer out of ICU to stepdown unit. Recommendations per cardiology to continue on aspirin and Effient for 1 year without interruption. Discharge planning in progress for tomorrow. Increase ambulation as tolerated. The impression and plan of care has been dictated as directed. : I performed a history and examination of this patient, discussed the same with the dictator. I agree with the dictator's note ,documented as a scribe. Any additional findings or plans will be noted.
[2025-03-28 13:26] VITALS: BMI 33.7
[2025-03-28] MEDS: ALPRAZolam 0.25 MG TAB PO SCH (21:07)
[2025-03-29 03:56] LABS: Basophils # (A) 0.09 10*3/uL (0.00-0.10); Basophils % (A) 0.8 %; Eosinophils # (A) 0.01 10*3/uL (0.04-0.35); Eosinophils % (A) 0.1 %; HCT 48.6 % (39.6-50.0); HGB 16.9 g/dL (13.0-17.0); Lymphocytes # (A) 2.87 10*3/uL (0.90-5.00); Lymphocytes % (A) 27.0 %; MCH 29.9 pg (27.0-32.0); MCHC 34.8 g/dL (32.0-37.0); MCV 86.0 fL (80.0-97.0); Monocytes # (A) 0.80 10*3/uL (0.20-1.00); Monocytes % (A) 7.5 %; Neutrophils # (A) 6.78 10*3/uL (1.80-7.70); Neutrophils % (A) 64.0 %; Platelet Count 183 10*3/uL (140-440); RBC 5.65 10*6/uL (4.40-5.60); RDW 14.0 % (11.5-14.5); WBC 10.61 10*3/uL (4.50-10.00)
[2025-03-29 04:22] LABS: ALT 37 U/L (4-49); AST 37 U/L (17-59); African American GFR (CKD) >90 (>60 ml/min/1.73 sqM); Albumin 3.9 g/dL (3.5-5.0); Alkaline Phosphatase 133 U/L (38-126); Anion Gap 10 mmol/L; Blood Urea Nitrogen 15 mg/dL (9-20); Calcium 9.9 mg/dL (8.4-10.2); Carbon Dioxide 24 mmol/L (22-30); Chloride 103 mmol/L (98-107); Glucose 105 mg/dL (74-99); Non-African American GFR(CKD) 89 (>60 ml/min/1.73 sqM); Potassium 4.5 mmol/L (3.5-5.1); Sodium 137 mmol/L (137-145); Total Protein 7.0 g/dL (6.3-8.2)
--- NOTE | 2025-03-29 07:40 | P.PN ---
Subjective Progress Note Date: 03/29/25 PROGRESS NOTE The patient is a 64-year-old male with a prior history of hyperlipidemia who presented with symptoms of chest comfort for 3 days and was found to have QS pattern in inferior leads with mild ST segment elevation. He underwent coronary angiography by Dr. Schwartz and was found to have severe obstructive disease in the mid left circumflex and underwent stenting of that vessel. He is feeling well this morning, he denies any chest discomfort, dizziness or palpitations. He continues to be in sinus mechanism. Hemodynamically he is stable. He has no prior similar symptoms. March 29: The patient is doing well this morning, ambulating without difficulties. He denies any chest discomfort, dizziness or palpitations. He continues to be in sinus mechanism. Hemodynamically stable. He has no recurrence of his anginal pain. His echocardiogram was reported showing ejection fraction of 60 to 65% with trace to mild mitral regurgitation. His dose of beta-karan was decreased yesterday because of sinus bradycardia. Medications: Aspirin, prasugrel 10 mg daily, Lipitor 80 mg daily, metoprolol tartrate 12.5 mg twice a day, Protonix PHYSICAL EXAMINATION: Blood pressure 133/83 heart rate 53 LUNGS: Clear to auscultation HEART: Regular rate and rhythm, S1, S2. No S3. No systolic murmur ABDOMEN: Soft, nontender, no organomegaly EXTREMETIES: No edema, LAB: Hemoglobin 16.9, WBC 10.6, BUN 15, creatinine 0.9. IMPRESSION: 1. Status post myocardial infarction with late presentation and stenting of the left circumflex 2. History of hyperlipidemia 3. History of gastroesophageal reflux disease PLAN: 1. Continue present therapy 2. Discharge home today 3. Follow-up with Dr. Schwartz next week. Objective - Vital Signs Vital signs: Vital Signs Temp 98.0 F 03/29/25 00:00 Pulse 53 L 03/29/25 06:00 Resp 14 03/29/25 03:00 BP 133/83 03/29/25 03:00 Pulse Ox 95 03/29/25 03:00 FiO2 Intake & Output 03/28/25 03/29/25 03/29/25 18:59 06:59 18:59 Intake Total 1014 Output Total 0 Balance 1014 Weight 103.8 kg 97 kg Intake: Oral 1014 Output: Urine 0 Other: # Voids 3 2 - Labs CBC & Chem 7: 03/29/25 03:05 03/29/25 03:05 Labs: Abnormal Lab Results - Last 24 Hours (Table) 03/29/25 03/29/25 Range/Units 03:05 03:05 WBC 10.61 H (4.50-10.00) 10*3/uL RBC 5.65 H (4.40-5.60) 10*6/uL MPV 12.3 H (9.5-12.2) fL Immature Gran # 0.06 H (0.00-0.04) 10*3/uL Eosinophils # 0.01 L (0.04-0.35) 10*3/uL Glucose 105 H (74-99) mg/dL Alkaline Phosphatase 133 H (38-126) U/L
[2025-03-29 09:11] VITALS: BP 108/82; PULSE 61; RESP 16; TEMP 97.8
--- NOTE | 2025-03-29 10:44 | P.DS ---
Providers Date of admission: 03/27/25 18:13 Expected date of discharge: 03/29/25 Attending physician: Steven Redding Consults: 03/27/25 18:07 Consult Physician Urgent Consulting Provider: Kemar Gee Consult Reason/Comments: acute chest pain, nstemi Do you want consulting provider notified?: Already Contacted 03/27/25 19:35 Consult Physician Routine Consulting Provider: Kemar Gee Consult Reason/Comments: Post Interventional Patient Do you want consulting provider notified?: Already Contacted Primary care physician: Steven Redding Hospital Course: Final Diagnosis: Late presenting inferior STEMI status post angioplasty with successful stenting of the mid left circumflex Hyperlipidemia Gastroesophageal reflux disease Obstructive sleep apnea Obesity, BMI 34 Prior nicotine dependence Osteoarthritis Anxiety Depression ADD, ADHD Hospital Course:This is a 64-year-old gentleman with past medical history significant for gastroesophageal reflux disease, osteoarthritis, obesity, obstructive sleep apnea wears CPAP, hyperlipidemia, ADD/ADHD, anxiety, depression, former nicotine dependence and multiple other medical issues presented to the ER with intermittent midsternal chest pressure radiating down left arm and into back, accompanied by some diaphoresis, lightheadedness progressively worsening since Tuesday. Attempted Aleve, omeprazole, Tums without improvement. Denies shortness of breath. Denies fever or chills. Denies syncope. Elevated troponin of 1.430, evaluated by cardiology- EKG sinus rhythm, Q waves inferiorly with evolving ST changes.Patient taken to the [employer] Analyst with concerns of late presenting inferior-lateral [place]. Cardiac cath reported critical stenosis of the mid left circumflex proceeded with angioplasty, successful stenting of the mid left circumflex. Tolerated procedure well. This morning sinus rhythm, denies chest pain, palpitations or shortness of breath. Echo pending. Maintained on aspirin, Effient ,Lipitor and metoprolol tartrate. Significant clinical improvement. Denies chest pain, palpitations or shortness of breath. Ambulating, tolerating exertion well. Maintaining O2 sats in the 90s on room air. Bradycardia yesterday, beta-karan decreased to 12.5 BID. echo completed reporting EF of 60 to 65% with trace to mild mitral regurgitation. Cleared by cardiology for discharge. Patient will be discharged today in a stable condition with guarded prognosis on aspirin 81 mg daily, Effient 10 mg daily, Lipitor 80 mg daily, metoprolol tartrate 12.5 mg twice daily and PPI. The impression and plan of care has been dictated as directed. : I performed a history and examination of this patient, discussed the same with the dictator. I agree with the dictator's note ,documented as a scribe. Any additional findings or plans will be noted. Patient Condition at Discharge: Stable Plan - Discharge Summary Discharge Rx Participant: Yes New Discharge Prescriptions: New Prasugrel [Effient] 10 mg PO DAILY #30 tab Metoprolol Tartrate [Lopressor] 12.5 mg PO BID #60 tab Aspirin EC [Ecotrin Low Dose] 81 mg PO DAILY #30 tab Atorvastatin [Lipitor] 80 mg PO HS #30 tab Nitroglycerin Sl Tabs [Nitrostat] 0.4 mg SUBLINGUAL Q5M PRN #100 tab PRN Reason: Chest Pain Continue Lisdexamfetamine Dimesylate [Vyvanse] 70 mg PO DAILY PRN PRN Reason: ADHD ALPRAZolam [Xanax] 0.25 mg PO HS Omeprazole 20 mg PO BID Discharge Medication List Lisdexamfetamine Dimesylate [Vyvanse] 70 mg PO DAILY PRN 07/18/19 [History] ALPRAZolam [Xanax] 0.25 mg PO HS 03/27/25 [History] Omeprazole 20 mg PO BID 03/27/25 [History] Aspirin EC [Ecotrin Low Dose] 81 mg PO DAILY #30 tab 03/29/25 [Rx] Atorvastatin [Lipitor] 80 mg PO HS #30 tab 03/29/25 [Rx] Metoprolol Tartrate [Lopressor] 12.5 mg PO BID #60 tab 03/29/25 [Rx] Nitroglycerin Sl Tabs [Nitrostat] 0.4 mg SUBLINGUAL Q5M PRN #100 tab 03/29/25 [Rx] Prasugrel [Effient] 10 mg PO DAILY #30 tab 03/29/25 [Rx] Follow up Appointment(s)/Referral(s): Zain Schwartz MD [Medical Doctor] - 1 Week Steven Redding DO [Primary Care Provider] - 1 Week
== END 2025-03-29 11:05 | disposition home or self-care (01) | DRG 322 ==
LOC: EC 15:41 → 2SICU 18:13
PROVIDERS: ADMIT Family Medicine; ATTEND Family Medicine
PROC: B240ZZ3 Ultrasonography of Single Coronary Artery, Intravascular (ICD-10-PCS; 2025-03-27)
PROC: 027034Z Dilation of Coronary Artery, One Artery with Drug-eluting Intraluminal Device, Percutaneous Approach (ICD-10-PCS; principal; 2025-03-27 17:59)
PROC: 4A023N7 Measurement of Cardiac Sampling and Pressure, Left Heart, Percutaneous Approach (ICD-10-PCS; 2025-03-27 17:59)
PROC: B2111ZZ Fluoroscopy of Multiple Coronary Arteries using Low Osmolar Contrast (ICD-10-PCS; 2025-03-27 17:59)
DX: I21.19 ST elevation (STEMI) myocardial infarction involving other coronary artery of inferior wall (principal); N17.9 Acute kidney failure, unspecified; I10 Essential (primary) hypertension; E66.9 Obesity, unspecified; F32.A Depression, unspecified; R00.1 Bradycardia, unspecified; I25.10 Atherosclerotic heart disease of native coronary artery without angina pectoris; Z68.34 Body mass index [BMI] 34.0-34.9, adult; F90.9 Attention-deficit hyperactivity disorder, unspecified type; M19.90 Unspecified osteoarthritis, unspecified site; G47.33 Obstructive sleep apnea (adult) (pediatric); E78.00 Pure hypercholesterolemia, unspecified; I25.2 Old myocardial infarction; K21.9 Gastro-esophageal reflux disease without esophagitis; F41.9 Anxiety disorder, unspecified; Z87.891 Personal history of nicotine dependence; Z79.899 Other long term (current) drug therapy; Z82.49 Family history of ischemic heart disease and other diseases of the circulatory system; Z79.82 Long term (current) use of aspirin; Z79.02 Long term (current) use of antithrombotics/antiplatelets; Z71.6 Tobacco abuse counseling; Z90.49 Acquired absence of other specified parts of digestive tract
CPT/HCPCS: 36415; 71046; 80048; 80053; 80061; 83690; 83735; 83880; 84484; 85025; 85610; 85730; 92978; 93005; 93306; 93458; 96365; 96375; 99291